=== PATIENT | male | born 1950 | race Caucasian/White ===

== ENCOUNTER 2017-05-29 17:42 | Inpatient (IN) | payer MEDICARE, OTHER ==
[~2017-05-29] VITALS: Ht 180.3 cm; Wt 94.0 kg
--- NOTE | 2017-05-29 18:27 | PD ---
Physical Exam Time Seen by Provider: 18:21 Narrative 67 year old male with history of Bilat Lung transplant SIX years ago, on immunosuppressive therapy, CKD, HTN, presents to the ED for evaluation of nausea , vomiting, and diarrhea. Pt states he first started with this last week. It resolved on its own, however, today it began again around noon. Denies any hematochezia or hematemesis. 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 Upon [facility] arrival, pt was hypotensive and after 1.5 LITER NS bolus, patient SBP was 90. Pt denies fever, but has been chilled. States he feels like his electrolytes are off. He has no other symptoms to report at this time GENERAL: Well nourished male patient, in no acute distress SKIN: Warm and dry. Well approximated sutured incision site on superior scalp; no erythema or edema. No drainage. R facial dressing intact. HEAD: Normocephalic. EYES: Pupils equal and round. No scleral icterus. No injection or drainage. ENT: No nasal bleeding or discharge. Mucous membranes pink and moist. NECK: Trachea midline. No JVD. CARDIOVASCULAR: Regular rate and rhythm. RESPIRATORY: No accessory muscle use. Clear to auscultation. Breath sounds equal bilaterally. GASTROINTESTINAL: Abdomen soft, non-distended; mild epigastric tenderness to deep palpation. Hepatic and splenic margins not palpable. MUSCULOSKELETAL: Extremities without clubbing, cyanosis, or edema. No obvious deformities. NEUROLOGICAL: Awake and alert. No obvious cranial nerve deficits. Motor grossly within normal limits. Five out of 5 muscle strength in the arms and legs. Normal speech. PSYCHIATRIC: Appropriate mood and affect; insight and judgment normal. Data Data Last Documented VS Vital Signs Date Time Temp Pulse Resp B/P (MAP) Pulse Ox O2 Delivery O2 Flow Rate FiO2 05/29/17 19:12 Room Air 05/29/17 18:41 97.3 104 18 131/62 (85) Orders Orders Electrocardiogram (05/29/17 18:16) Complete Blood Count With Diff (05/29/17 18:16) Comprehensive Metabolic Panel (05/29/17 18:16) Prothrombin Time / Inr (Pt) (05/29/17 18:16) Act Partial Throm Time (Ptt) (05/29/17 18:16) Lactic Acid Sepsis Protocol (05/29/17 18:16) Magnesium (Mg) (05/29/17 18:16) Ckmb (Isoenzyme) Profile (05/29/17 18:16) Troponin I (05/29/17 18:16) Urinalysis - C+S If Indicated (05/29/17 18:16) Blood Culture (05/29/17 18:16) Chest, Single Ap (05/29/17 18:16) Blood Glucose (05/29/17 18:16) Ecg Monitoring (05/29/17 18:16) Iv Access Insert/Monitor (05/29/17 18:16) Oximetry (05/29/17 18:16) Oxygen Administration (05/29/17 18:16) Ondansetron Inj (Zofran Inj) (05/29/17 18:30) C Diff Toxin Pcr (05/29/17 18:56) MDM Medical Record Reviewed: Yes Supervised Visit with ERNA: No Differential Diagnosis gastroenteritis versus electrolyte abnormality versus sepsis versus pancreatitis versus cholecystitis Narrative Course 67 year old male presents to the ED for evalution of n/v/d. Pt feels weak. He is mildly tachycardic; afebrile but with a lower normothermic temp. He continues to vomit here in the amb. ocampo; zofran is ordered. Pt has received 1.5 LNS bolus from evac. Lab work is initiated in triage ambulance hallway. Once a medical bed is available, pt will be transferred and care assumed by that provider. Condition: Stable Jessica Ladd May 29, 2017 18:27
[2017-05-29] MEDS ORDERED: ONDANSETRON HCL 4 MG/2 ML VIAL IV PUSH ONE (18:30)
[2017-05-29 18:41] VITALS: BP 131/62; PULSE 104; RESP 18; TEMP 97.3
[2017-05-29] MEDS ORDERED: METO25TA3 PO (19:19)
[2017-05-29] MEDS ORDERED: LISI2.5T3 PO (19:19)
[2017-05-29] MEDS ORDERED: PRED1 PO (19:19)
[2017-05-29] MEDS ORDERED: [UNRECOGNIZED DRUG - CODE] PO (19:19)
[2017-05-29] MEDS ORDERED: CYCL25CA4 PO (19:19)
[2017-05-29] MEDS ORDERED: SODIUM CHLOR 0.9% 1000 ML INJ 1,000 ML IV SCH ×2 (19:22→21:24)
[2017-05-29] MEDS ORDERED: PANTOPRAZOLE SODIUM 40 MG VIAL IVP ONE (19:30)
[2017-05-29] MEDS ORDERED: METOCLOPRAMIDE HCL 10 MG/2 ML VIAL IV PUSH ONE (19:30)
[2017-05-29] MEDS ORDERED: FAMOTIDINE 20 MG/2 ML VIAL IV PUSH ONE (19:30)
--- NOTE | 2017-05-29 19:38 | PD ---
Physical Exam Narrative General: The patient is well-developed well-nourished male in no acute distress. Head and Neck exam: Head is normocephalic, bandages noted along the right side of the face. The patient reports that he had a skin cancer removed earlier today at a dermatology clinic. Eyes: EOMI, pupils are equal round and reactive to light. Nose: Midline septum with pink mucous membranes Mouth: Dentition unremarkable. Moist mucus membranes. Posterior oropharynx is not erythematous. No tonsillar hypertrophy. Uvula midline. Airway patent. Neck: No palpable lymphadenopathy. No nuchal rigidity. No thyromegaly. Cardiovascular: Sinus tachycardia in the low 100s without murmurs, gallops, or rubs. No pulse deficit to the extremities and simultaneous auscultation and palpation of his radial artery. Lungs: Clear to auscultation bilaterally. No wheezes, rhonchi, or rales. Abdomen: Soft, without tenderness to palpation in all 4 quadrants of the abdomen. No guarding, rebound, or rigidity. Normal bowel sounds are audible. No tenderness on palpation of McBurney's point. Negative Li sign. Extremities: No clubbing, cyanosis, or edema. 2+ pulses in all 4 extremities. No calf tenderness on palpation. Back: No spinous process tenderness to palpation. No costovertebral angle tenderness to palpation. Neurologic Exam: Grossly nonfocal. Skin Exam: No rash noted. Intact skin that is warm and dry. Data Data Last Documented VS Vital Signs Date Time Temp Pulse Resp B/P (MAP) Pulse Ox O2 Delivery O2 Flow Rate FiO2 05/29/17 19:57 100 90/56 (67) 97 Room Air 05/29/17 18:41 97.3 18 Orders Orders Electrocardiogram (05/29/17 18:16) Complete Blood Count With Diff (05/29/17 18:16) Comprehensive Metabolic Panel (05/29/17 18:16) Prothrombin Time / Inr (Pt) (05/29/17 18:16) Act Partial Throm Time (Ptt) (05/29/17 18:16) Lactic Acid Sepsis Protocol (05/29/17 18:16) Magnesium (Mg) (05/29/17 18:16) Ckmb (Isoenzyme) Profile (05/29/17 18:16) Troponin I (05/29/17 18:16) Urinalysis - C+S If Indicated (05/29/17 18:16) Blood Culture (05/29/17 18:16) Chest, Single Ap (05/29/17 18:16) Blood Glucose (05/29/17 18:16) Ecg Monitoring (05/29/17 18:16) Iv Access Insert/Monitor (05/29/17 18:16) Oximetry (05/29/17 18:16) Oxygen Administration (05/29/17 18:16) Ondansetron Inj (Zofran Inj) (05/29/17 18:30) C Diff Toxin Pcr (05/29/17 18:56) Pantoprazole Inj (Protonix Inj) (05/29/17 19:30) Sodium Chlor 0.9% 1000 Ml Inj (Ns 1000 M (05/29/17 19:22) Famotidine Inj (Pepcid Inj) (05/29/17 19:30) Metoclopramide Inj (Reglan Inj) (05/29/17 19:30) Lipase (05/29/17 20:24) Sodium Chlor 0.9% 1000 Ml Inj (Ns 1000 M (05/29/17 21:24) Metronidazole 500 Mg Inj (Flagyl 500 Mg (05/29/17 22:00) Place In Observation (05/29/17 ) Vital Signs (Adult) Q4H (05/29/17 22:09) Activity Oob With Assistance (05/29/17 22:09) Channel Man / Telemetry .CONTINUOUS (05/29/17 22:09) Diet Heart Healthy (05/30/17 Breakfast) Sodium Chloride 0.9% Flush (Ns Flush) (05/29/17 22:15) Sodium Chloride 0.9% Flush (Ns Flush) (05/30/17 09:00) Basic Metabolic Panel (Bmp) (05/30/17 06:00) Complete Blood Count With Diff (05/30/17 06:00) Naloxone Inj (Narcan Inj) (05/29/17 22:15) Admit Order (Ed Use Only) (05/29/17 22:11) Labs Laboratory Tests Test 05/29/17 19:21 05/29/17 20:40 05/29/17 21:08 Prothrombin Time 10.6 SEC Prothromb Time International Ratio 1.0 RATIO Activated Partial Thromboplast Time 21.9 SEC Blood Urea Nitrogen 47 MG/DL Creatinine 3.22 MG/DL Random Glucose 124 MG/DL Total Protein 6.5 GM/DL Albumin 3.2 GM/DL Calcium Level 8.6 MG/DL Magnesium Level 1.6 MG/DL Alkaline Phosphatase 44 U/L Aspartate Amino Transf (AST/SGOT) 13 U/L Alanine Aminotransferase (ALT/SGPT) 22 U/L Total Bilirubin 0.7 MG/DL Sodium Level 141 MEQ/L Potassium Level 5.4 MEQ/L Chloride Level 111 MEQ/L Carbon Dioxide Level 19.9 MEQ/L Anion Gap 10 MEQ/L Estimat Glomerular Filtration Rate 19 ML/MIN Total Creatine Kinase 59 U/L Troponin I LESS THAN 0.02 NG/ML White Blood Count 15.9 TH/MM3 Red Blood Count 4.94 MIL/MM3 Hemoglobin 14.5 GM/DL Hematocrit 44.5 % Mean Corpuscular Volume 90.1 FL Mean Corpuscular Hemoglobin 29.3 PG Mean Corpuscular Hemoglobin Concent 32.5 % Red Cell Distribution Width 13.9 % Platelet Count 122 TH/MM3 Mean Platelet Volume 8.0 FL Neutrophils (%) (Auto) 90.6 % Lymphocytes (%) (Auto) 2.6 % Monocytes (%) (Auto) 6.2 % Eosinophils (%) (Auto) 0.1 % Basophils (%) (Auto) 0.5 % Neutrophils # (Auto) 14.4 TH/MM3 Lymphocytes # (Auto) 0.4 TH/MM3 Monocytes # (Auto) 1.0 TH/MM3 Eosinophils # (Auto) 0.0 TH/MM3 Basophils # (Auto) 0.1 TH/MM3 CBC Comment AUTO DIFF Differential Total Cells Counted 100 Neutrophils % (Manual) 82 % Band Neutrophils % 11 % Lymphocytes % 3 % Monocytes % 3 % Neutrophils # (Manual) 14.9 TH/MM3 Metamyelocytes 1 % Differential Comment FINAL DIFF MANUAL Platelet Estimate LOW Platelet Morphology Comment NORMAL Ovalocytes 1+ Acanthocytes OCC Lactic Acid Level 1.2 mmol/L Lipase 183 U/L Stool C. difficile Toxin (PCR) NEGATIVE Stl C. difficile Toxin Epiderm 027 PRESUMPTIVE NEGATIVE MDM Medical Record Reviewed: Yes Supervised Visit with ERNA: Yes Narrative Course I, Dr. Pineda, have reviewed the advance practice practitioner's documentation and am in agreement, met with the patient face to face, made the diagnosis, and the medical decision making was done by me. The patient was initially evaluated by Jessica and Martir. Please see their initial dictations. *My assessment and Findings: The patient is a 67-year-old male who presents to [facility] emergency Department with a history of nausea vomiting and diarrhea that first began a week ago. The patient's medical history is complicated by being on immunosuppressive therapy related to bilateral lung transplant 6 years ago. The patient also has a history of hypertension, chronic renal insufficiency. The patient reports that his last creatinine was in the twos. He reports that today the nausea and vomiting began again after seem to be improving. He reports that he's had diarrhea 5, nausea vomiting 7. The patient prior to arrival back into the emergency department that has received 1.5 L of normal saline and 2 doses of Zofran. He reports that his nausea has improved. The patient is followed by Z[facility] for his primary care, given his history of lung transplant. He reports of the lung transplant was done related to a history of sarcoidosis and pulmonary fibrosis. During the course of the patients emergency department visit, the patients history, examination, and differential diagnosis were reviewed with the patient. The patient had IV access obtained and blood work sent for analysis. The patient was placed on a monitor tech with oximetry and blood pressure monitoring. An ECG was done on arrival. Patient's EKG reveals a sinus tachycardia rate of 101, QRS duration is 80 ms, QTC is 382 ms. The patient is noted to have nonspecific ST depression in V2, V3, V4, T waves are inverted in V1. The patient was initially provided normal saline 1 L IV fluid bolus, Reglan 10 mg IV, famotidine 20 mg IV. The patients laboratory studies were reviewed and remarkable for a white count of 15.9, hemoglobin 14.5, platelets 122 with 82 neutrophils, 11 bands, 3 lymphocytes area and a lactic acid and blood culture were sent. CMP is remarkable for a potassium of 5.4, chloride 111, CO2 19.9, BUN 47, creatinine 3.22 suspicious for acute on chronic renal insufficiency related to dehydration , glucose 124, AST 13, alkaline phosphatase 44, CPK 59, troponin I less than 0.02, lipase 183, lactic acid 1.2. PT 10.6, PTT 21.9. A C. difficile toxin has been sent for analysis. Radiology studies were reviewed and remarkable for a chest x-ray that shows elevation of the right hemidiaphragm was suspected chronic pleural changes along the right lateral chest. The lungs themselves appear grossly clear. Calcified lymph nodes in the mediastinum are noted. The patients results were discussed with the patient, including the plan of care. I explained that further testing and/ or monitoring is indicated based on the patients history, examination, and/ or laboratory findings. Therefore, I recommended admission for additional evaluation. The patient expressed understanding and was agreeable with this plan. The patient was admitted to the hospital in guarded condition and [facility] Diagnosis Primary Impression: Intractable nausea and vomiting Qualified Codes: R11.2 - Nausea with vomiting, unspecified Additional Impression: Acute kidney injury superimposed on chronic kidney disease Admitting Information Admitting Physician Requests: Admit Condition: Stable Imelda Pineda MD May 29, 2017 19:38
--- NOTE | 2017-05-29 19:51 | RADRPT ---
EXAM DATE/TIME: 05/29/2017 18:29 [place] COMPARISON: No previous studies available for comparison. INDICATIONS : Nausea MEDICAL HISTORY : None. SURGICAL HISTORY : Bilateral lung transplant ENCOUNTER: Initial ACUITY: 1 day PAIN SCORE: 0/10 LOCATION: Chest FINDINGS: The heart size is normal. There do appear to be possible clips over the lower medial l eft chest. Calcified lymph nodes are seen in the mediastinum. The lungs are grossly clear. There is elevation of the right hemidiaphragm. There is some pleural change along the right lateral chest. Old healed left-sided rib fractures are seen. Prior exams are unavailable for comparison. There does appear to be some calcific density seen inferior to the coronoid process on the left which may repre sent a loose body at the left glenohumeral joint. CONCLUSION: 1. Elevation of the right hemidiaphragm with suspected chronic pleural change along the right lateral chest. Prior exams are unavailable. 2. The lungs themselves appear grossly clear. 3. Calcified lymph nodes in the mediastinum. Bi Wells MD on May 29, 2017 at 19:14 Board Certified Radiologist. This report was verified electronically.
[2017-05-29 19:52] LABS: APTT (PATIENT) 21.9 SEC (24.3-30.1); PROTHROMBIN TIME - PATIENT 10.6 SEC (9.8-11.6)
[2017-05-29 19:57] VITALS: BP 90/56; PULSE 100; O2SAT 97
--- NOTE | 2017-05-29 20:12 | PD ---
HPI Chief Complaint: GI Complaint Time Seen by Provider: 19:14 Travel History International Travel<30 days: No Contact w/Intl Traveler<30days: No Traveled to known affect area: No History of Present Illness HPI 67-year-old male to presents to the ED via ambulance for evaluation of nausea and vomiting and diarrhea. Per patient he developed this today. Patient has a completely history including chronic kidney disease, lung transplant with immunosuppressants and multiple skin cancers removed. Per patient today he developed an episode of nausea and vomiting. Diarrhea noted as well. [place] [facility] [place] and he developed the nausea and vomiting. She was given Zofran at the facility and then brought here for evaluation. Per patient he feels like his lactulose her low. He denies any chest pain versus having some abdominal discomfort. Per patient the discomfort is not severe. He states that he had the transplant done at [facility] and he is currently on immunosuppressants for it. Patient has a history of fibrosis to his lungs which is what caused transplant. Patient has no allergies to medication. Per patient his discomfort is 4 out of 10 but he is actively vomiting during my examination so history is somewhat limited. [facility] Past Medical History Tetanus Vaccination: > 5 Years Influenza Vaccination: Yes Past Surgical History Other Surgery: Yes (JOEY LUNG TRANSPLANT AT [facility]) Social History Alcohol Use: No Tobacco Use: No Substance Use: No Allergies-Medications (Allergen,Severity, Reaction): Coded Allergies: No Known Allergies (Unverified , 05/29/17) Reported Meds & Prescriptions Reported Meds & Active Scripts Active Reported Metoprolol Tartrate 25 Mg Tab Mg PO BID Lisinopril 2.5 Mg Tab Mg PO DAILY Prednisone 1 Mg Tab 0.5 Mg PO DAILY Rapamune (Sirolimus) 0.5 Mg Tab 0.5 Mg PO DAILY Cyclosporine 25 Mg Cap 50 Mg PO BID Review of Systems Except as stated in HPI: all other systems reviewed are Neg Physical Exam Narrative GENERAL: SKIN: Warm and dry. HEAD: Atraumatic. Normocephalic. EYES: Pupils equal and round. No scleral icterus. No injection or drainage. ENT: No nasal bleeding or discharge. Mucous membranes pink and moist. Tongue is midline. No uvula deviation. NECK: Trachea midline. No JVD. CARDIOVASCULAR: Regular rate and rhythm. No murmurs, S3, S4. RESPIRATORY: No accessory muscle use. Clear to auscultation. Breath sounds equal bilaterally. GASTROINTESTINAL: Abdomen soft, diffusely tender, nondistended. Hepatic and splenic margins not palpable. MUSCULOSKELETAL: Extremities without clubbing, cyanosis, or edema. No obvious deformities. Full range of motion of the upper and lower extremities bilaterally. 2+ pulses bilaterally. NEUROLOGICAL: Awake and alert. No obvious cranial nerve deficits. Motor grossly within normal limits. Five out of 5 muscle strength in the arms and legs. Normal speech. PSYCHIATRIC: Appropriate mood and affect; insight and judgment normal. Data Data Last Documented VS Vital Signs Date Time Temp Pulse Resp B/P (MAP) Pulse Ox O2 Delivery O2 Flow Rate FiO2 05/29/17 19:57 100 90/56 (67) 97 Room Air 05/29/17 18:41 97.3 18 Orders Orders Electrocardiogram (05/29/17 18:16) Complete Blood Count With Diff (05/29/17 18:16) Comprehensive Metabolic Panel (05/29/17 18:16) Prothrombin Time / Inr (Pt) (05/29/17 18:16) Act Partial Throm Time (Ptt) (05/29/17 18:16) Lactic Acid Sepsis Protocol (05/29/17 18:16) Magnesium (Mg) (05/29/17 18:16) Ckmb (Isoenzyme) Profile (05/29/17 18:16) Troponin I (05/29/17 18:16) Urinalysis - C+S If Indicated (05/29/17 18:16) Blood Culture (05/29/17 18:16) Chest, Single Ap (05/29/17 18:16) Blood Glucose (05/29/17 18:16) Ecg Monitoring (05/29/17 18:16) Iv Access Insert/Monitor (05/29/17 18:16) Oximetry (05/29/17 18:16) Oxygen Administration (05/29/17 18:16) Ondansetron Inj (Zofran Inj) (05/29/17 18:30) C Diff Toxin Pcr (05/29/17 18:56) Pantoprazole Inj (Protonix Inj) (05/29/17 19:30) Sodium Chlor 0.9% 1000 Ml Inj (Ns 1000 M (05/29/17 19:22) Famotidine Inj (Pepcid Inj) (05/29/17 19:30) Metoclopramide Inj (Reglan Inj) (05/29/17 19:30) Lipase (05/29/17 20:24) Sodium Chlor 0.9% 1000 Ml Inj (Ns 1000 M (05/29/17 21:24) Metronidazole 500 Mg Inj (Flagyl 500 Mg (05/29/17 22:00) Place In Observation (05/29/17 ) Vital Signs (Adult) Q4H (05/29/17 22:09) Activity Oob With Assistance (05/29/17 22:09) Managed Services Consultant / Telemetry .CONTINUOUS (05/29/17 22:09) Diet Heart Healthy (05/30/17 Breakfast) Sodium Chloride 0.9% Flush (Ns Flush) (05/29/17 22:15) Sodium Chloride 0.9% Flush (Ns Flush) (05/30/17 09:00) Basic Metabolic Panel (Bmp) (05/30/17 06:00) Complete Blood Count With Diff (05/30/17 06:00) Naloxone Inj (Narcan Inj) (05/29/17 22:15) Admit Order (Ed Use Only) (05/29/17 22:11) Labs Laboratory Tests Test 05/29/17 19:21 05/29/17 20:40 05/29/17 21:08 Prothrombin Time 10.6 SEC Prothromb Time International Ratio 1.0 RATIO Activated Partial Thromboplast Time 21.9 SEC Blood Urea Nitrogen 47 MG/DL Creatinine 3.22 MG/DL Random Glucose 124 MG/DL Total Protein 6.5 GM/DL Albumin 3.2 GM/DL Calcium Level 8.6 MG/DL Magnesium Level 1.6 MG/DL Alkaline Phosphatase 44 U/L Aspartate Amino Transf (AST/SGOT) 13 U/L Alanine Aminotransferase (ALT/SGPT) 22 U/L Total Bilirubin 0.7 MG/DL Sodium Level 141 MEQ/L Potassium Level 5.4 MEQ/L Chloride Level 111 MEQ/L Carbon Dioxide Level 19.9 MEQ/L Anion Gap 10 MEQ/L Estimat Glomerular Filtration Rate 19 ML/MIN Total Creatine Kinase 59 U/L Troponin I LESS THAN 0.02 NG/ML White Blood Count 15.9 TH/MM3 Red Blood Count 4.94 MIL/MM3 Hemoglobin 14.5 GM/DL Hematocrit 44.5 % Mean Corpuscular Volume 90.1 FL Mean Corpuscular Hemoglobin 29.3 PG Mean Corpuscular Hemoglobin Concent 32.5 % Red Cell Distribution Width 13.9 % Platelet Count 122 TH/MM3 Mean Platelet Volume 8.0 FL Neutrophils (%) (Auto) 90.6 % Lymphocytes (%) (Auto) 2.6 % Monocytes (%) (Auto) 6.2 % Eosinophils (%) (Auto) 0.1 % Basophils (%) (Auto) 0.5 % Neutrophils # (Auto) 14.4 TH/MM3 Lymphocytes # (Auto) 0.4 TH/MM3 Monocytes # (Auto) 1.0 TH/MM3 Eosinophils # (Auto) 0.0 TH/MM3 Basophils # (Auto) 0.1 TH/MM3 CBC Comment AUTO DIFF Lactic Acid Level 1.2 mmol/L Lipase 183 U/L [facility] Medical Decision Making Medical Screen Exam Complete: Yes Emergency Medical Condition: Yes Medical Record Reviewed: Yes Interpretation(s) CBC & BMP Diagram 05/29/17 19:21 Total Protein 6.5, Albumin 3.2 L, Calcium Level 8.6, Magnesium Level 1.6, Alkaline Phosphatase 44 L, Aspartate Amino Transf (AST/SGOT) 13 L, Alanine Aminotransferase (ALT/SGPT) 22, Total Bilirubin 0.7 05/29/17 20:40 CXR negative for acute disease Differential Diagnosis Nausea and vomiting versus diarrhea versus gastroenteritis versus obstruction versus pancreatitis versus sepsis Narrative Course 67-year-old male that presents to the ED for evaluation of nausea and vomiting. Patient was properly examined and was found to have signs and symptoms consistent appears to be much vomiting and diarrhea. Labs and imaging were ordered initially by Jessica QUIROGA. During my evaluation patient was actively vomiting so Reglan was ordered. Case was discussed in my attending Dr. Pineda who evaluated the patient with me and agrees with plan. Labs and imaging came back showing leukocytosis as well as appears to be possible acute on chronic kidney disease. Patient does tell us that his creatinine usually runs in the tissues and today's is on the trees. Possibly from the hydration. Recommendation was for admission for further workup as well as symptomatic relief. Patient is in agreement with this plan. Case discussed with Dr. Pineda who agrees with this plan. Patient was started on Flagyl prophylactically for infection prophylactic. Case discussed with Dr. Dailey who agrees to admission. Procedures EKG Prior to Arrival: No Diagnosis Primary Impression: Intractable nausea and vomiting Qualified Codes: R11.2 - Nausea with vomiting, unspecified Additional Impressions: Acute kidney injury superimposed on chronic kidney disease Leukocytosis Qualified Codes: D72.825 - Bandemia Admitting Information Admitting Physician Requests: Observation Condition: Stable Martir Perry May 29, 2017 20:12
[2017-05-29 20:19] LABS: ALKALINE PHOSPHATASE 44 U/L (45-117); ALT (GPT) 22 U/L (12-78); ANION GAP 10 MEQ/L (5-15); AST (GOT) 13 U/L (15-37); BICARBONATE 19.9 MEQ/L (21.0-32.0); BLOOD UREA NITROGEN 47 MG/DL (7-18); CHLORIDE 111 MEQ/L (98-107); GLOMERULAR FILTRATION RATE 19 ML/MIN (>89); MAGNESIUM 1.6 MG/DL (1.5-2.5); POTASSIUM 5.4 MEQ/L (3.5-5.1); SODIUM (NA) 141 MEQ/L (136-145); TOTAL BILIRUBIN ADULT 0.7 MG/DL (0.2-1.0)
[2017-05-29 20:21] LABS: CREATINE KINASE 59 U/L (39-308)
[2017-05-29 21:35] LABS: AUTOMATED NEUTROPHIL # 14.4 TH/MM3 (1.8-7.7); BASOPHIL # 0.1 TH/MM3 (0-0.2); BASOPHIL % 0.5 % (0.0-2.0); EOSINOPHIL % 0.1 % (0.0-4.0); HEMATOCRIT 44.5 % (39.0-51.0); LYMPH % 2.6 % (9.0-44.0); LYMPHOCYTE # 0.4 TH/MM3 (1.0-4.8); MEAN CELL VOLUME 90.1 FL (80.0-100.0); MEAN CORPUSCULAR HEMOGLOBIN 29.3 PG (27.0-34.0); MEAN CORPUSCULAR HGB CONC 32.5 % (32.0-36.0); MONO % 6.2 % (0.0-8.0); NEUT % 90.6 % (16.0-70.0); PLATELET COUNT 122 TH/MM3 (150-450); RED BLOOD COUNT 4.94 MIL/MM3 (4.50-5.90); RED CELL DISTRIBUTION WIDTH 13.9 % (11.6-17.2); WHITE BLOOD COUNT 15.9 TH/MM3 (4.0-11.0)
[2017-05-29 21:45] LABS: HEMO FLAGS AUTO DIFF
[2017-05-29] MEDS ORDERED: metroNIDAZOLE 500 MG INJ 100 ML IV ONE (22:00)
[2017-05-29] MEDS ORDERED: SODIUM CHLORIDE 0.9% FLUSH 10 ML FLUSH IV FLUSH PRN (22:15)
[2017-05-29] MEDS ORDERED: NALOXONE HCL 0.4 MG/ML AMP IV PRN (22:15)
[2017-05-29 22:22] LABS: BANDS 11 % (0-6); METAMYELOCYTES 1 % (0-1); NEUTROPHIL # MANUAL DIFF 14.9 TH/MM3 (1.8-7.7); POLYS (SEG NEUTROPHILS) 82 % (16-70); WBC DIFF SAMPLE 100
[2017-05-29 22:24] LABS: ACANTHOCYTES OCC (NORMAL); OVALOCYTES 1+ (NORMAL); PLATELET ESTIMATE SMEAR LOW (NORMAL); PLATELET MORPHOLOGY NORMAL (NORMAL); SCAN/DIFF FINAL DIFF MANUAL
[2017-05-29 23:14] LABS: C. DIFF EPI 027 PRESUMPTIVE NEGATIVE (NEGATIVE)
[2017-05-30] VITALS (13 sets, daily range): BP systolic 81–137; BP diastolic 52–72; PULSE 86–108; RESP 16–20; TEMP 96.9–98.6; O2SAT 96–100
--- NOTE | 2017-05-30 02:13 | HHI.HP ---
[facility] No Primary Care Physician Admission Diagnosis intractable nausea and vomit, leukocytosis, immunosupressants Diagnoses: Chief Complaint: nausea, vomiting and diarrhea Travel History International Travel<30 Days: No Contact w/Intl Traveler <30 Da: No Traveled to Known Affected Are: No History of Present Illness Written by KIMBER Dumas acting as scribe for [Ashlie] on 05/30/17 at 02: 02. 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 He states he was at the ammonia box operator today removing a skin cancer from his right side of his face and he became nauseous. He states one week ago he had vomiting for 1 day a week ago, and then again today. He states it is brown tinged and he has associated severe diarrhea 10x times today x 1 day and very little urination. He denies any fever, chills, dizziness, black or bloody stools. He was recently started on lisinopril from his home care physical therapist about a month ago. He is also on Bactrim on Monday, Monday, Saturdays. He states he is awaiting a kidney transplant, and states his kidney disease is from taking cyclosporin. He reports he was taking cyclosporin for antirejection due to his lung transplant which she received 6 years ago. Cardiac cath one month ago, and no intervention needed. Cardiac catheter was done a month ago because of abnormal stress test and also as evaluation for renal transplant candidacy. Further information was obtained from lung transplant retail team member Benito London at [facility] at [phone] by Ashlie. Patient's baseline creatinine there is 2.8-3. Review of Systems Except as stated in HPI: all other systems reviewed are Neg Past Family Social History Past Medical History HTN CKD stage 4 Sarcoidosis Afib prior to transplant Past Surgical History lung transplant with immunosuppressants Multiple skin cancer removal Reported Medications Patient's medications list OBTAINED from the clinical training coordinator Benito London at [facility] lung transplant team. Phone number [phone]. Acyclovir 400 mg by mouth twice a day Calcitriol 0.25 g every other day. Norco7.5 mg/325 one tablet by mouth every 6 hours when necessary for pain. Lisinopril 5 mg by mouth daily. Metoprolol 50 mg by mouth twice a day. Niacinamide 500 g by mouth twice a day Zofran when necessary for nausea Proton X 40 mg by mouth twice a day Pravastatin 20 mg by mouth twice a day Bactrim single strength by mouth daily on Monday, Monday, Monday Allergies: Coded Allergies: No Known Allergies (Unverified , 05/29/17) Active Ordered Medications Current Medications Medications (Trade) Dose Ordered Sig/Adrianne Route Start Time Stop Time Status Last Admin (NS Flush) 2 ml UNSCH PRN IV FLUSH 05/29/17 22:15 (NS Flush) 2 ml BID IV FLUSH 05/30/17 09:00 (Narcan Inj) 0.4 mg UNSCH PRN IV 05/29/17 22:15 (Zofran Inj) 4 mg Q6H PRN IV PUSH 05/30/17 02:00 Family History Family history of Colon cancer Social History Tobacco use: Denies Alcohol use: Denies Illicit drug use: Denies Physical Exam Vital Signs Vital Signs Date Time Temp Pulse Resp B/P (MAP) Pulse Ox O2 Delivery O2 Flow Rate FiO2 05/29/17 19:57 100 90/56 (67) 97 Room Air 05/29/17 19:12 Room Air 05/29/17 19:12 Room Air 05/29/17 18:41 97.3 104 18 131/62 (85) Physical Exam GENERAL: This is a well-nourished, well-developed patient, who is very nauseous and uncomfortable. SKIN: No rashes, ecchymoses or lesions. Cool and dry. HEAD: Atraumatic. Normocephalic. EYES: Pupils equal round and reactive. ENT: Nose without bleeding, purulent drainage or septal hematoma. Airway patent. NECK: Trachea midline. No JVD CARDIOVASCULAR: Regular rate and rhythm without murmurs, gallops, or rubs. RESPIRATORY: Clear to auscultation. Breath sounds equal bilaterally. No wheezes , rales, or rhonchi. GASTROINTESTINAL: Abdomen soft, non-tender, nondistended. MUSCULOSKELETAL: Extremities without clubbing, cyanosis, or edema. No calf tenderness. NEUROLOGICAL: Awake and alert. Motor and sensory grossly within normal limits. Normal speech. Laboratory Laboratory Tests Test 05/29/17 19:21 05/29/17 20:40 05/29/17 21:08 Prothrombin Time 10.6 Prothromb Time International Ratio 1.0 Activated Partial Thromboplast Time 21.9 Blood Urea Nitrogen 47 Creatinine 3.22 Random Glucose 124 Total Protein 6.5 Albumin 3.2 Calcium Level 8.6 Magnesium Level 1.6 Alkaline Phosphatase 44 Aspartate Amino Transf (AST/SGOT) 13 Alanine Aminotransferase (ALT/SGPT) 22 Total Bilirubin 0.7 Sodium Level 141 Potassium Level 5.4 Chloride Level 111 Carbon Dioxide Level 19.9 Anion Gap 10 Estimat Glomerular Filtration Rate 19 Total Creatine Kinase 59 Troponin I LESS THAN 0.02 White Blood Count 15.9 Red Blood Count 4.94 Hemoglobin 14.5 Hematocrit 44.5 Mean Corpuscular Volume 90.1 Mean Corpuscular Hemoglobin 29.3 Mean Corpuscular Hemoglobin Concent 32.5 Red Cell Distribution Width 13.9 Platelet Count 122 Mean Platelet Volume 8.0 Neutrophils (%) (Auto) 90.6 Lymphocytes (%) (Auto) 2.6 Monocytes (%) (Auto) 6.2 Eosinophils (%) (Auto) 0.1 Basophils (%) (Auto) 0.5 Neutrophils # (Auto) 14.4 Lymphocytes # (Auto) 0.4 Monocytes # (Auto) 1.0 Eosinophils # (Auto) 0.0 Basophils # (Auto) 0.1 CBC Comment AUTO DIFF Differential Total Cells Counted 100 Neutrophils % (Manual) 82 Band Neutrophils % 11 Lymphocytes % 3 Monocytes % 3 Neutrophils # (Manual) 14.9 Metamyelocytes 1 Differential Comment FINAL DIFF MANUAL Platelet Estimate LOW Platelet Morphology Comment NORMAL Ovalocytes 1+ Acanthocytes OCC Lactic Acid Level 1.2 Lipase 183 Stool C. difficile Toxin (PCR) NEGATIVE Stl C. difficile Toxin Epiderm 027 PRESUMPTIVE NEGATIVE Date/Time Source Procedure Growth Status 05/29/17 19:55 Blood Peripheral Aerobic Blood Culture Pending Received 05/29/17 19:55 Blood Peripheral Anaerobic Blood Culture Pending Received Result Diagram: 05/29/17203905/29/17 192 Imaging Last Impressions Chest X-Ray 05/29/17 1816 Signed Impressions: Service Date/Time: Monday, May 29, 2017 18:29 - CONCLUSION: 1. Elevation of the right hemidiaphragm with suspected chronic pleural change along the right lateral chest. Prior exams are unavailable. 2. The lungs themselves appear grossly clear. 3. Calcified lymph nodes in the mediastinum. MD Frankie Moreno VTE Risk Assessment Caprini VTE Risk Assessment: Mod/High Risk (score >= 2) Caprini Risk Assessment Model Point Value = 1 Point Value = 2 Point Value = 3 Point Value = 5 Age 41-60 Minor surgery BMI > 25 kg/m2 Swollen legs Varicose veins or History of unexplained or recurrent spontaneous Oral contraceptives or hormone replacement Sepsis (< 1 month) Serious lung disease, including pneumonia (< 1 month) Abnormal pulmonary function Acute myocardial infarction Congestive heart failure (< 1 month) History of inflammatory bowel disease Medical patient at bed rest Age 61-74 Arthroscopic surgery Major open surgery (> 45 min) Laparoscopic surgery (> 45 min) Malignancy Confined to bed (> 72 hours) Immobilizing plaster cast Central venous access Age >= 75 History of VTE Family history of VTE Factor V Leiden Prothrombin [id number] Lupus anticoagulant Anticardiolipin antibodies Elevated serum homocysteine Heparin-induced thrombocytopenia Other congenital or acquired thrombophilia Stroke (< 1 month) Elective arthroplasty Hip, pelvis, or leg fracture Acute spinal cord injury (< 1 month) Prophylaxis Regimen Total Risk Factor Score Risk Level Prophylaxis Regimen 0-1 Low Early ambulation 2 Moderate Order ONE of the following: *Sequential Compression Device (SCD) *Heparin 5000 units SQ BID 3-4 Higher Order ONE of the following medications: *Heparin 5000 units SQ TID *Enoxaparin/Lovenox 40 mg SQ daily (WT < 150 kg, CrCl > 30 mL/min) *Enoxaparin/Lovenox 30 mg SQ daily (WT < 150 kg, CrCl > 10-29 mL/min) *Enoxaparin/Lovenox 30 mg SQ BID (WT < 150 kg, CrCl > 30 mL/min) AND/OR *Sequential Compression Device (SCD) 5 or more Highest Order ONE of the following medications: *Heparin 5000 units SQ TID (Preferred with Epidurals) *Enoxaparin/Lovenox 40 mg SQ daily (WT < 150 kg, CrCl > 30 mL/min) *Enoxaparin/Lovenox 30 mg SQ daily (WT < 150 kg, CrCl > 10-29 mL/min) *Enoxaparin/Lovenox 30 mg SQ BID (WT < 150 kg, CrCl > 30 mL/min) AND *Sequential Compression Device (SCD) Assessment and Plan Problem List: (1) Acute kidney injury superimposed on chronic kidney disease ICD Code: N17.9 - Acute kidney failure, unspecified; N18.9 - Chronic kidney disease, unspecified Status: Acute (2) Intractable nausea and vomiting ICD Code: R11.2 - Nausea with vomiting, unspecified Status: Acute (3) Leukocytosis ICD Code: D72.829 - Elevated white blood cell count, unspecified Status: Acute Assessment and Plan 67 y/o male with a 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 Acute Kidney injury, superimposed on CKD, creatine 3.2, baseline around 2.8-3, likely dehydration from nausea, vomiting and diarrhea -IVF for hydration -BMP in AM -Antiemetics as needed -Avoid nephrotoxins as much as possible. Hold lisinopril. Bactrim would need to be continued due to transplant status Leukocytosis, likely from prednisone use, wbc 15.9, cdiff negative- r/o other infectious eitologies Chest xray reviewed and shows elevation of the right hemidiaphragm with suspected chronic pleural change along the right lateral chest. Lungs appear clear, calcified lymph nodes in the mediastinum. -UA ordered -Trend CBC -Stool studies ordered enteric path, enterovirus, ova and parasites Immunosuppressive therapy, history of lung transplant 6 years ago -Will continue medications - verified with [facility] clinical training coordinator DVT prophylaxis: heparin This note was transcribed by tamiko [Marnie Johnson]. I, Dr. Russell Dailey personally performed the history, physical exam, and medical decision making; and confirmed the accuracy of the information in the transcribed note. Authenticated by Dr. Russell Dailey on 05/30/17 at 02:02. Discussed Condition With Patient and RN Physician Certification 2 Midnight Certification Type: Admission for Inpatient Services Order for Inpatient Services The services are ordered in accordance with Medicare regulations or non- Medicare payer requirements, as applicable. In the case of services not specified as inpatient-only, they are appropriately provided as inpatient services in accordance with the 2-midnight benchmark. Estimated LOS (days): 2 days is the estimated time the patient will need to remain in the hospital, assuming treatment plan goals are met and no additional complications. Post-Hospital Plan: Home Problem Qualifiers (1) Intractable nausea and vomiting: Qualified Codes: R11.2 - Nausea with vomiting, unspecified (2) Leukocytosis: Qualified Codes: D72.825 - Bandemia Marnie Johnson May 30, 2017 02:13 Russell Dailey MD May 30, 2017 03:12
[2017-05-30] MEDS: ONDANSETRON HCL 4 MG/2 ML VIAL IV PUSH PRN ×3 (02:25→17:46)
[2017-05-30] MEDS ORDERED: SODIUM CHLOR 0.9% 1000 ML INJ 1,000 ML IV SCH (03:00)
[2017-05-30] MEDS ORDERED: PILL SPLITTER OTHER PRN (03:15)
[2017-05-30] MEDS ORDERED: NIAC500T4 PO (04:35)
[2017-05-30] MEDS ORDERED: ZOFR4TAB PO (04:35)
[2017-05-30] MEDS ORDERED: BACT400T PO (04:35)
[2017-05-30] MEDS ORDERED: PRAV20TA2 PO (04:35)
[2017-05-30] MEDS ORDERED: HYDR-3288 PO (04:35)
[2017-05-30] MEDS ORDERED: PROT40TA PO (04:35)
[2017-05-30] MEDS ORDERED: CALC0.25 PO (04:35)
[2017-05-30] MEDS ORDERED: ACYC400T PO (04:35)
[2017-05-30] MEDS ORDERED: ACETAMINOPHEN/HYDROcodone 325 MG/7.5 MG TAB PO PRN (04:45)
[2017-05-30] MEDS ORDERED: SIROLIMUS 1 MG TAB PO SCH (06:00)
[2017-05-30] MEDS: PANTOPRAZOLE SOD 40 MG DELAYED RELEASE TAB PO SCH ×2 (07:57→17:21)
[2017-05-30] MEDS ORDERED: PRAVASTATIN SOD 20 MG TAB PO SCH (09:00)
[2017-05-30] MEDS ORDERED: SIROLIMUS 1 MG TAB PO ONE (11:00)
--- NOTE | 2017-05-30 11:17 | PD.CONS ---
HPI Service Nephrology Consult Requested By Reason for Consult Acute on CKD Primary Care Physician No Primary Care Physician History of Present Illness This is a 67 y/o male with extensive PMH including sarcoidosis s/p lung transplant. He also has CKD 4 from calcineurin inhibitor usage and is on the list at [facility] for renal transplant. He has a baseline creatinine of 2.8-3, and presents with creatinine of 3.2, K 5.4, C02 19. He reports nausea/vomiting/ diarrhea for several days and decreased urine output. We were consulted for renal management. His blood pressure is borderline low overnight, and he is requesting antiemetic currently. (Lissa Rojas) Review of Systems Constitutional: COMPLAINS OF: Fatigue, DENIES: Fever Gastrointestinal: COMPLAINS OF: Diarrhea, Nausea, Vomiting, DENIES: Abdominal pain, Black stools, Bloody stools (Lissa Rojas) Past Family Social History Allergies: Coded Allergies: No Known Allergies (Unverified , 05/29/17) Past Medical History CKD stage 4, baseline Creatinine 2.8-3 HTN Sarcoidosis Afib in the past skin cancer Past Surgical History lung transplant with immunosuppressants Multiple skin cancer removal Reported Medications Acyclovir 400 mg by mouth twice a day Calcitriol 0.25 g every other day. Norco7.5 mg/325 one tablet by mouth every 6 hours when necessary for pain. Lisinopril 5 mg by mouth daily. Metoprolol 50 mg by mouth twice a day. Niacinamide 500 g by mouth twice a day Zofran when necessary for nausea Proton X 40 mg by mouth twice a day Pravastatin 20 mg by mouth twice a day Bactrim single strength by mouth daily on Monday, Monday, Monday Active Ordered Medications Current Medications Medications (Trade) Dose Ordered Sig/Adrianne Route Start Time Stop Time Status Last Admin (NS Flush) 2 ml UNSCH PRN IV FLUSH 05/29/17 22:15 (NS Flush) 2 ml BID IV FLUSH 05/30/17 09:00 (Narcan Inj) 0.4 mg UNSCH PRN IV 05/29/17 22:15 (Zofran Inj) 4 mg Q6H PRN IV PUSH 05/30/17 02:00 05/30/17 02:25 (SandIMMUNE) 50 mg BID PO 05/30/17 09:00 (Deltasone) 0.5 mg DAILY PO 05/30/17 09:00 (Pill Splitter) 1 ea UNSCH PRN OTHER 05/30/17 03:15 (Bactrim 400-80 Mg) 1 tab MoTuSa@0900 PO 05/30/17 09:00 (Zovirax) 400 mg BID PO 05/30/17 09:00 ([place] 7.5-325 Mg) 1 tab Q6H PRN PO 05/30/17 04:45 (Protonix) 40 mg BIDAC PO 05/30/17 07:00 05/30/17 07:57 (Pravachol) 20 mg BID PO 05/30/17 09:00 (Slo-Niacin) 500 mg BID@0900,1800 PO 05/30/17 09:00 Non-Formulary Medication SIROLIMUS 0.5 MG TABLET... 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, retired full code (Lissa Rojas) Physical Exam Vital Signs Vital Signs Date Time Temp Pulse Resp B/P (MAP) Pulse Ox O2 Delivery O2 Flow Rate FiO2 05/30/17 09:11 86 16 137/70 (92) 97 Room Air 05/30/17 07:10 102 16 111/69 (83) 98 Room Air 05/30/17 06:42 99 93/52 (66) 96 Room Air 05/30/17 06:02 104 113/66 (82) 99 Room Air 05/30/17 05:20 104 117/63 (81) 98 Room Air 05/30/17 05:01 96 20 107/57 (74) 97 Room Air 05/30/17 04:43 100 95/62 (73) 05/30/17 04:14 100 81/52 (62) 97 05/30/17 03:39 100 82/54 (63) 97 Room Air 05/29/17 19:57 100 90/56 (67) 97 Room Air 05/29/17 19:12 Room Air 05/29/17 19:12 Room Air 05/29/17 18:41 97.3 104 18 131/62 (85) Physical Exam Middle aged male, awake and answers questions but eyes closed right face with dressing intact S1/S2, RRR no murmurs Abd: soft, non tender lungs: decreased in bases ext: no edema, skin intact Laboratory Laboratory Tests Test 05/29/17 19:21 05/29/17 20:40 05/29/17 21:08 Prothrombin Time 10.6 Prothromb Time International Ratio 1.0 Activated Partial Thromboplast Time 21.9 Blood Urea Nitrogen 47 Creatinine 3.22 Random Glucose 124 Total Protein 6.5 Albumin 3.2 Calcium Level 8.6 Magnesium Level 1.6 Alkaline Phosphatase 44 Aspartate Amino Transf (AST/SGOT) 13 Alanine Aminotransferase (ALT/SGPT) 22 Total Bilirubin 0.7 Sodium Level 141 Potassium Level 5.4 Chloride Level 111 Carbon Dioxide Level 19.9 Anion Gap 10 Estimat Glomerular Filtration Rate 19 Total Creatine Kinase 59 Troponin I LESS THAN 0.02 White Blood Count 15.9 Red Blood Count 4.94 Hemoglobin 14.5 Hematocrit 44.5 Mean Corpuscular Volume 90.1 Mean Corpuscular Hemoglobin 29.3 Mean Corpuscular Hemoglobin Concent 32.5 Red Cell Distribution Width 13.9 Platelet Count 122 Mean Platelet Volume 8.0 Neutrophils (%) (Auto) 90.6 Lymphocytes (%) (Auto) 2.6 Monocytes (%) (Auto) 6.2 Eosinophils (%) (Auto) 0.1 Basophils (%) (Auto) 0.5 Neutrophils # (Auto) 14.4 Lymphocytes # (Auto) 0.4 Monocytes # (Auto) 1.0 Eosinophils # (Auto) 0.0 Basophils # (Auto) 0.1 CBC Comment AUTO DIFF Differential Total Cells Counted 100 Neutrophils % (Manual) 82 Band Neutrophils % 11 Lymphocytes % 3 Monocytes % 3 Neutrophils # (Manual) 14.9 Metamyelocytes 1 Differential Comment FINAL DIFF MANUAL Platelet Estimate LOW Platelet Morphology Comment NORMAL Ovalocytes 1+ Acanthocytes OCC Lactic Acid Level 1.2 Lipase 183 Stool C. difficile Toxin (PCR) NEGATIVE Stl C. difficile Toxin Epiderm 027 PRESUMPTIVE NEGATIVE Date/Time Source Procedure Growth Status 05/29/17 19:55 Blood Peripheral Aerobic Blood Culture Pending Received 05/29/17 19:55 Blood Peripheral Anaerobic Blood Culture Pending Received 05/29/17 21:08 Stool Stool Cryptosporidium Exam Pending Received 05/29/17 21:08 Stool Stool Giardia Antigen (DUDLEY) Pending Received (Lissa Rojas) Result Diagram: 05/29/17203905/29/17 192 Imaging Last 72 hours Impressions Chest X-Ray 05/29/17 1816 Signed Impressions: Service Date/Time: Monday, May 29, 2017 18:29 - CONCLUSION: 1. Elevation of the right hemidiaphragm with suspected chronic pleural change along the right lateral chest. Prior exams are unavailable. 2. The lungs themselves appear grossly clear. 3. Calcified lymph nodes in the mediastinum. Bi Wells MD (Lissa Rojas) Assessment and Plan Problem List: (1) Acute kidney injury superimposed on chronic kidney disease ICD Codes: N17.9 - Acute kidney failure, unspecified; N18.9 - Chronic kidney disease, unspecified Status: Acute Plan: He has CKD stage 4 and is on waiting list for renal transplant 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, baseline creatinine 2.8-3 HARMAN from prerenal azotemia from vomiting and diarrhea, also hypotension, may have progressed to ATN bicarb drip ordered K 5.4, C02 19.9, should improve with fluids he has not been making much urine, follow output obtain urine electrolytes renal US ordered avoid nephrotoxins renal panel in AM of note he is on Bactrim three times weekly, which needs to be continued at this time (2) Intractable nausea and vomiting ICD Codes: R11.2 - Nausea with vomiting, unspecified Status: Acute Plan: also with diarrhea stool sample has been sent for studies continue antiemetics and IVF CT reviewed (3) S/P lung transplant ICD Codes: Z94.2 - Lung transplant status Plan: continue immunosuppression as ordered (Lissa Rojas) Assessment and Plan patient was seen and examined. Agree with above assessment and plan. Continue IVF. Avoid nephrotoxic agents. Acute on chronic kidney disease could be secondary to pre-renal azotemia. 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 Added bicarbonate to IVF. He does have hyperkalemia, monitor. Patient is s/p dual lung transplant because of progressive idiopathic pulmonary fibrosis. (Brayden Trujillo MD) Problem Qualifiers (1) Intractable nausea and vomiting: Qualified Codes: R11.2 - Nausea with vomiting, unspecified CrystalLissa gonzalez May 30, 2017 11:17 Brayden Trujillo MD May 30, 2017 11:39
[2017-05-30] MEDS: SODIUM CHLORIDE 0.9% FLUSH 10 ML FLUSH IV FLUSH SCH ×2 (11:25→22:19)
--- NOTE | 2017-05-30 11:30 | RADRPT ---
EXAM DATE/TIME: 05/30/2017 10:31 [place] COMPARISON: No previous studies available for comparison. INDICATIONS : Increased BUN/Creatinine. MEDICAL HISTORY : Hypertension. Sarcoidosis. Chronic kidney disease. Pulmonary fibrosis. Skin cancer. SURGICAL HISTORY : Lung transplant. Skin cancer removal. ENCOUNTER: Initial ACUITY: 1 day PAIN SCORE: 0/10 LOCATION: Bilateral flank MEASUREMENTS: RIGHT KIDNEY: 8.3 x 4.8 x 4.6 cm LEFT KIDNEY: 9.3 x 6.2 x 4.5 cm FINDINGS: The kidneys demonstrates increased echogenicity of the cortex compatible with medical renal disease. No hydronephrosis or mass lesions are identified. There are simple cysts bilaterally the largest cary uring 1.1 cm bilaterally. A small amount of ascites is present in the left upper quadrant. CONCLUSION: 1. Echogenic kidneys bilaterally compatible with medical renal disease. Orlando Bethea MD on May 30, 2017 at 11:27 Board Certified Radiologist. This report was verified electronically.
[2017-05-30] MEDS: SODIUM CHLORIDE 23.4% INJ 38.5 MEQ, SODIUM BICARBONATE 8.4% INJ 75 MEQ in WATER STERILE... IV SCH (11:40)
--- NOTE | 2017-05-30 13:08 | EKG ---
Date Performed: 05/29/2017 Time Performed: 19:27:30 PTAGE: 67 years EKG: SINUS TACHYCARDIA POSSIBLE LEFT ATRIAL ENLARGEMENT POSSIBLE RIGHT VENTRICULAR CONDUCTION DE LAY NONSPECIFIC ST & T-WAVE ABNORMALITY ABNORMAL RHYTHM ECG NO PREVIOUS TRACING DOCTOR: Mena Moreno Interpretating Date/Time 05/30/2017 13:05:28
[2017-05-30] MEDS: cycloSPORINE 25 MG CAP PO SCH ×2 (13:40→22:16)
[2017-05-30] MEDS: SULFAMETHOXAZOLE-TRIMETHOPRIM 400-80 MG TAB PO SCH (13:40)
[2017-05-30] MEDS: predniSONE 1 MG TAB PO SCH (13:43)
--- NOTE | 2017-05-30 13:58 | HHI.PR ---
Subjective Remarks Follow-up 1 every on chronic renal failure and diarrhea/emesis Patient stated that he had 3 episodes watery diarrhea since midnight. He had 6 yesterday. Patient stated that he had an episode of emesis last night. He stated that this has been intermittently chronic. He stated that this was due to chronic use of pravastatin and he firmly believes this is a reason why he had emesis. Patient asking to see GI. Patient remains afebrile. Spoke with patient lung transplant a "rn palliative care Aidee Banuelos in regards to patient's care and notify her that our hospital only carries sirolimus 1 mg tablets. Per Xin he may take 1 mg every other day until facility is able to obtain 0.5 mg tablets. She stated that no levels need to be monitored and to continue with his current immunosuppressants. Objective Vitals Vital Signs Date Time Temp Pulse Resp B/P (MAP) Pulse Ox O2 Delivery O2 Flow Rate FiO2 05/30/17 13:00 101 05/30/17 11:10 96.9 104 16 116/60 (78) 100 05/30/17 09:11 86 16 137/70 (92) 97 Room Air 05/30/17 07:10 102 16 111/69 (83) 98 Room Air 05/30/17 06:42 99 93/52 (66) 96 Room Air 05/30/17 06:02 104 113/66 (82) 99 Room Air 05/30/17 05:20 104 117/63 (81) 98 Room Air 05/30/17 05:01 96 20 107/57 (74) 97 Room Air 05/30/17 04:43 100 95/62 (73) 05/30/17 04:14 100 81/52 (62) 97 05/30/17 03:39 100 82/54 (63) 97 Room Air 05/29/17 19:57 100 90/56 (67) 97 Room Air 05/29/17 19:12 Room Air 05/29/17 19:12 Room Air 05/29/17 18:41 97.3 104 18 131/62 (85) I/O 05/29/17 05/29/17 05/29/17 05/30/17 05/30/17 05/30/17 07:00 15:00 23:00 07:00 15:00 23:00 Intake Total 2100 ml Balance 2100 ml Intake IV Total 2100 ml Result Diagram: 05/29/17203905/29/171920 Objective Remarks GENERAL: in NAD CARDIOVASCULAR: Regular rate and rhythm without murmurs, gallops, or rubs. RESPIRATORY: Breath sounds equal bilaterally. No accessory muscle use. GASTROINTESTINAL: Abdomen soft, non-tender, nondistended. Medications and IVs Current Medications Ondansetron HCl (Zofran Inj) 4 mg ONCE ONCE IV PUSH Last administered on 18:30; Start 05/29/17 at 18:30; Stop 05/29/17 at 18:31; Status DC Pantoprazole Sodium (Protonix Inj) 40 mg ONCE ONCE IVP Last administered on 20:11; Start 05/29/17 at 19:30; Stop 05/29/17 at 19:32; Status DC Sodium Chloride 1,000 ml @ 1,000 mls/hr Q1H IV Last administered on 05/29/17 20:10; Start 05/29/17 at 19:22; Stop 05/29/17 at 20:21; Status DC Famotidine (Pepcid Inj) 20 mg ONCE ONCE IV PUSH Last administered on 20:10; Start 05/29/17 at 19:30; Stop 05/29/17 at 19:32; Status DC Metoclopramide HCl (Reglan Inj) 10 mg ONCE ONCE IV PUSH Last administered on 20:11; Start 05/29/17 at 19:30; Stop 05/29/17 at 19:32; Status DC Sodium Chloride 1,000 ml @ 1,000 mls/hr Q1H IV Last administered on 05/29/17 23:26; Start 05/29/17 at 21:24; Stop 05/29/17 at 22:23; Status DC Metronidazole 100 ml @ 100 mls/hr ONCE ONCE IV Last administered on 23:27; Start 05/29/17 at 22:00; Stop 05/29/17 at 22:59; Status DC Sodium Chloride (NS Flush) 2 ml UNSCH PRN IV FLUSH FLUSH AFTER USING IV ACCESS ; Start 05/29/17 at 22:15 Sodium Chloride (NS Flush) 2 ml BID IV FLUSH Last administered on 05/30/17 11: 25; Start 05/30/17 at 09:00 Naloxone HCl (Narcan Inj) 0.4 mg UNSCH PRN IV SEE LABEL COMMENTS; Start at 22:15 Ondansetron HCl (Zofran Inj) 4 mg Q6H PRN IV PUSH nausea Last administered on 11:24; Start 05/30/17 at 02:00 Sodium Chloride 1,000 ml @ 100 mls/hr Q10H IV Last administered on 05/30/17 04:22; Start 05/30/17 at 03:00; Stop 05/30/17 at 09:32; Status DC Cyclosporine (SandIMMUNE) 50 mg BID PO Last administered on 05/30/17 13:40; Start 05/30/17 at 09:00 Prednisone (Deltasone) 0.5 mg DAILY PO Last administered on 05/30/17 13:43; Start 05/30/17 at 09:00 Sirolimus (Rapamune) 0.5 mg DAILY@0600 PO ; Start 05/30/17 at 06:00; Stop at 09:11; Status DC Miscellaneous (Pill Splitter) 1 ea UNSCH PRN OTHER SEE LABEL COMMENTS; Start at 03:15 Trimethoprim/ Sulfamethoxazole (Bactrim 400-80 Mg) 1 tab MoTuSa@0900 PO Last administered on 05/30/17 13:40; Start 05/30/17 at 09:00 Acyclovir (Zovirax) 400 mg BID PO ; Start 05/30/17 at 09:00 Acetaminophen/ Hydrocodone Bitart ([place] 7.5-325 Mg) 1 tab Q6H PRN PO PAIN 1- 10; Start 05/30/17 at 04:45 Pantoprazole Sodium (Protonix) 40 mg BIDAC PO Last administered on 05/30/17 07 :57; Start 05/30/17 at 07:00 Pravastatin Sodium (Pravachol) 20 mg BID PO ; Start 05/30/17 at 09:00 Niacin (Slo-Niacin) 500 mg BID@0900,1800 PO ; Start 05/30/17 at 09:00 Non-Formulary Medication SIROLIMUS 0.5 MG TABLET... DAILY@0600 PO ; Start at 06:00 Sodium Chloride 38.5 meq/Sodium Bicarbonate 75 meq/Sterile Water 1,084.625 ml @ 75 mls/hr [id number] IV Last administered on 05/30/17t 11:40; Start 05/30/17 at 10 :00 Sirolimus (Rapamune) 1 mg ONCE ONCE PO Last administered on 05/30/17 13:41; Start 05/30/17 at 11:00; Stop 05/30/17 at 11:01; Status DC A/P Problem List: (1) Acute kidney injury superimposed on chronic kidney disease ICD Code: N17.9 - Acute kidney failure, unspecified; N18.9 - Chronic kidney disease, unspecified Status: Acute (2) Intractable nausea and vomiting ICD Code: R11.2 - Nausea with vomiting, unspecified Status: Acute (3) Leukocytosis ICD Code: D72.829 - Elevated white blood cell count, unspecified Status: Acute Assessment and Plan 67 y/o male with a 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 Acute Kidney injury, superimposed on CKD, creatine 3.2, baseline around 2.8-3, likely dehydration from nausea, vomiting and diarrhea -IVF for hydration -Avoid nephrotoxins as much as possible. Hold lisinopril. Bactrim would need to be continued due to transplant status -Coding Team Lead consulted and started patient on IV bicarbonate. Continue management per parboiler. Leukocytosis, likely from prednisone use, wbc 15.9, Chest xray reviewed and shows elevation of the right hemidiaphragm with suspected chronic pleural change along the right lateral chest. Lungs appear clear, calcified lymph nodes in the mediastinum. -Still pending UA. -Trend CBC -Stool studies cultures negative. C. difficile was also negative. Diarrhea/emesis -More likely secondary to gastroenteritis. So far stool studies are negative. Patient requesting to see GI. Will consult GI. Patient was treated empirically with Flagyl. Continue Flagyl. Immunosuppressive therapy, history of lung transplant 6 years ago -continue medications - verified with [facility] optometric coordinator -Per Xin Banuelos Transplant coordination can give sirolimus1 mg every other day until 0.5 mg tablets obtained. Also dealt with pharmacist in regards to ordering this. DVT prophylaxis: heparin Problem Qualifiers (1) Intractable nausea and vomiting: Qualified Codes: R11.2 - Nausea with vomiting, unspecified (2) Leukocytosis: Qualified Codes: D72.825 - Bandemia Beatrice Clark MD May 30, 2017 13:57
[2017-05-30] MEDS: ACYCLOVIR 200 MG CAP PO SCH ×2 (14:00→22:16)
--- NOTE | 2017-05-30 16:03 | PD.CONS ---
HPI History of Present Illness This is a 67 year old male with hx lung transplant on immunosuppression, CKD, HTN, sarcoidosis, pulmonary fibrosis who presented w/ n/v/diarrhea, epigastric pain onset yesterday. He had 6 BM yesterday and 4 today, loose and water. Last vomited yesterday. NO blood in emesis or stool, no tarry stool, no significant weight loss. Denies sick contacts, change in diet. REcently started vitamin A supplementation. Denies fever. Feels better today, no vomit , tolerating limited clear fluids. His epigastric pain is improved as well. Last had colonoscopy2 months [facility], polyps were found. Never had EGD (Juany Orozco) PFSH Past Medical History HTN CKD stage 4 Sarcoidosis Afib prior to transplant Past Surgical History lung transplant with immunosuppressants Multiple skin cancer removal (Juany Orozco) Coded Allergies: No Known Allergies (Unverified , 05/29/17) Family History Family history of Colon cancer Social History Tobacco use: Denies Alcohol use: Denies Illicit drug use: Denies (Juany Orozco) Review of Systems Constitutional: DENIES: Fever Ears, nose, mouth, throat: DENIES: Throat pain Respiratory: DENIES: Hemoptysis Gastrointestinal: COMPLAINS OF: Abdominal pain, Diarrhea, Nausea, Vomiting, DENIES: Black stools, Bloody stools Genitourinary: DENIES: Hematuria Musculoskeletal: DENIES: Joint Swelling Integumentary: DENIES: Jaundice Hematologic/lymphatic: DENIES: Bruising Psychiatric: DENIES: Confusion (Juany Orozco) GI Exam Vitals I&O Vital Signs Date Time Temp Pulse Resp B/P (MAP) Pulse Ox O2 Delivery O2 Flow Rate FiO2 05/30/17 13:00 101 05/30/17 11:10 96.9 104 16 116/60 (78) 100 05/30/17 09:11 86 16 137/70 (92) 97 Room Air 05/30/17 07:10 102 16 111/69 (83) 98 Room Air 05/30/17 06:42 99 93/52 (66) 96 Room Air 05/30/17 06:02 104 113/66 (82) 99 Room Air 05/30/17 05:20 104 117/63 (81) 98 Room Air 05/30/17 05:01 96 20 107/57 (74) 97 Room Air 05/30/17 04:43 100 95/62 (73) 05/30/17 04:14 100 81/52 (62) 97 05/30/17 03:39 100 82/54 (63) 97 Room Air 05/29/17 19:57 100 90/56 (67) 97 Room Air 05/29/17 19:12 Room Air 05/29/17 19:12 Room Air 05/29/17 18:41 97.3 104 18 131/62 (85) I/O 05/29/17 05/29/17 05/29/17 05/30/17 05/30/17 05/30/17 07:00 15:00 23:00 07:00 15:00 23:00 Intake Total 2100 ml Balance 2100 ml Intake IV Total 2100 ml Imaging Last Impressions Renal Ultrasound 05/30/17 0929 Signed Impressions: Service Date/Time: Tuesday, May 30, 2017 10:31 - CONCLUSION: 1. Echogenic kidneys bilaterally compatible with medical renal disease. Orlando Bethea MD Chest X-Ray 05/29/171815 Signed Impressions: Service Date/Time: Monday, May 29, 2017 18:29 - CONCLUSION: 1. Elevation of the right hemidiaphragm with suspected chronic pleural change along the right lateral chest. Prior exams are unavailable. 2. The lungs themselves appear grossly clear. 3. Calcified lymph nodes in the mediastinum. Bi Wells MD Laboratory Test 05/29/17 19:21 05/29/17 20:40 05/29/17 21:08 Prothrombin Time 10.6 SEC Prothromb Time International Ratio 1.0 RATIO Activated Partial Thromboplast Time 21.9 SEC Blood Urea Nitrogen 47 MG/DL Creatinine 3.22 MG/DL Random Glucose 124 MG/DL Total Protein 6.5 GM/DL Albumin 3.2 GM/DL Calcium Level 8.6 MG/DL Magnesium Level 1.6 MG/DL Alkaline Phosphatase 44 U/L Aspartate Amino Transf (AST/SGOT) 13 U/L Alanine Aminotransferase (ALT/SGPT) 22 U/L Total Bilirubin 0.7 MG/DL Sodium Level 141 MEQ/L Potassium Level 5.4 MEQ/L Chloride Level 111 MEQ/L Carbon Dioxide Level 19.9 MEQ/L Anion Gap 10 MEQ/L Estimat Glomerular Filtration Rate 19 ML/MIN Total Creatine Kinase 59 U/L Troponin I LESS THAN 0.02 NG/ML White Blood Count 15.9 TH/MM3 Red Blood Count 4.94 MIL/MM3 Hemoglobin 14.5 GM/DL Hematocrit 44.5 % Mean Corpuscular Volume 90.1 FL Mean Corpuscular Hemoglobin 29.3 PG Mean Corpuscular Hemoglobin Concent 32.5 % Red Cell Distribution Width 13.9 % Platelet Count 122 TH/MM3 Mean Platelet Volume 8.0 FL Neutrophils (%) (Auto) 90.6 % Lymphocytes (%) (Auto) 2.6 % Monocytes (%) (Auto) 6.2 % Eosinophils (%) (Auto) 0.1 % Basophils (%) (Auto) 0.5 % Neutrophils # (Auto) 14.4 TH/MM3 Lymphocytes # (Auto) 0.4 TH/MM3 Monocytes # (Auto) 1.0 TH/MM3 Eosinophils # (Auto) 0.0 TH/MM3 Basophils # (Auto) 0.1 TH/MM3 CBC Comment AUTO DIFF Differential Total Cells Counted 100 Neutrophils % (Manual) 82 % Band Neutrophils % 11 % Lymphocytes % 3 % Monocytes % 3 % Neutrophils # (Manual) 14.9 TH/MM3 Metamyelocytes 1 % Differential Comment FINAL DIFF MANUAL Platelet Estimate LOW Platelet Morphology Comment NORMAL Ovalocytes 1+ Acanthocytes OCC Lactic Acid Level 1.2 mmol/L Lipase 183 U/L Stool C. difficile Toxin (PCR) NEGATIVE Stl C. difficile Toxin Epiderm 027 PRESUMPTIVE NEGATIVE Date/Time Source Procedure Growth Status 05/29/17 19:55 Blood Peripheral Aerobic Blood Culture - Preliminary NO GROWTH IN 1 DAY Resulted 05/29/17 19:55 Blood Peripheral Anaerobic Blood Culture - Preliminary NO GROWTH IN 1 DAY Resulted 05/29/17 21:08 Stool Stool Cryptosporidium Exam Pending Received 05/29/17 21:08 Stool Stool Giardia Antigen (DUDLEY) Pending Received Physical Examination HEENT: PERRL; normocephalic; atraumatic; no jaundice. bandage right face CHEST: CTA CARDIAC: RRR ABDOMEN: Soft, nondistended, nontender; no hepatosplenomegaly; bowel sounds are present in all four quadrants. EXTREMITIES: No clubbing, cyanosis, or edema. SKIN: Normal; no rash; no jaundice. [employer]PER[employer]MENT: No focal deficits; alert and oriented times three. (Juany Orozco) Assessment and Plan Plan ASSESSMENT - n/v/diarrhea, epigastric pain - suspect gastroenteritis. clinically improving. Given Flagyl on admission empirically. afebrile. colonoscopy at [facility] 2m ago, polyps found. stool cx neg for enteric pathogens, c diff. Cryptosporidia and giardia pending. PLAN - clears - monitor labwork - supportive care - consider EGD if fails to improve This pt seen by myself and Dr Pichardo and this note is written on his behalf (Juany Orozco) Physician Comments Patient would like to hold on any endoscopic evaluation for now, will continue conservative treatment . Further recommendations to follow. (Nigel Pichardo MD) Juany Orozco May 30, 2017 16:03 Nigel Pichardo MD May 30, 2017 20:33
[2017-05-30] MEDS: NIACIN 500 MG EXTENDED RELEASE TAB PO SCH ×2 (16:54→19:58)
[2017-05-30 17:26] LABS: AUTOMATED NEUTROPHIL # 9.2 TH/MM3 (1.8-7.7); BASOPHIL # 0.1 TH/MM3 (0-0.2); BASOPHIL % 1.2 % (0.0-2.0); EOSINOPHIL # 0.1 TH/MM3 (0-0.4); EOSINOPHIL % 1.1 % (0.0-4.0); HEMO FLAGS DIFF FINAL; LYMPH % 5.1 % (9.0-44.0); LYMPHOCYTE # 0.6 TH/MM3 (1.0-4.8); MEAN CELL VOLUME 89.9 FL (80.0-100.0); MEAN CORPUSCULAR HEMOGLOBIN 29.6 PG (27.0-34.0); MEAN CORPUSCULAR HGB CONC 32.9 % (32.0-36.0); MONO % 10.7 % (0.0-8.0); NEUT % 81.9 % (16.0-70.0); PLATELET COUNT 173 TH/MM3 (150-450); RED BLOOD COUNT 4.12 MIL/MM3 (4.50-5.90); WHITE BLOOD COUNT 11.2 TH/MM3 (4.0-11.0)
[2017-05-30 17:33] LABS: BICARBONATE 17.2 MEQ/L (21.0-32.0); POTASSIUM 4.7 MEQ/L (3.5-5.1)
[2017-05-31] VITALS (11 sets, daily range): BP systolic 138–159; BP diastolic 71–86; PULSE 93–170; RESP 18–20; TEMP 97.2–98.7; O2SAT 96–99
[2017-05-31] MEDS: SODIUM CHLORIDE 23.4% INJ 38.5 MEQ, SODIUM BICARBONATE 8.4% INJ 75 MEQ in WATER STERILE... IV SCH ×3 (01:14→21:55)
[2017-05-31] MEDS: ONDANSETRON HCL 4 MG/2 ML VIAL IV PUSH PRN (01:18)
[2017-05-31] MEDS: PANTOPRAZOLE SOD 40 MG DELAYED RELEASE TAB PO SCH ×2 (06:40→16:00)
[2017-05-31] MEDS: SIROLIMUS 0.5 MG PO SCH (06:41)
[2017-05-31] MEDS: NIACIN 500 MG EXTENDED RELEASE TAB PO SCH ×2 (08:57→18:24)
[2017-05-31] MEDS: predniSONE 1 MG TAB PO SCH (08:57)
[2017-05-31] MEDS: ACYCLOVIR 200 MG CAP PO SCH ×2 (08:57→20:57)
[2017-05-31] MEDS: cycloSPORINE 25 MG CAP PO SCH ×2 (08:57→20:57)
[2017-05-31] MEDS: SODIUM CHLORIDE 0.9% FLUSH 10 ML FLUSH IV FLUSH SCH ×2 (08:58→20:57)
--- NOTE | 2017-05-31 09:59 | HHI.PR ---
Subjective Remarks Follow-up for diarrhea and acute renal failure Patient stated that diarrhea has improved. He stated that he was able take tolerate oral intake today. Patient stated that he did urinate around 4 AM. His urination was not measured. Otherwise patient has no other complaints. Patient's nurse in regards to measuring patient's urine. Order was placed on admission for this. Patient also told to save his urine and notify his nurse. Objective Vitals Vital Signs Date Time Temp Pulse Resp B/P (MAP) Pulse Ox O2 Delivery O2 Flow Rate FiO2 05/31/17 01:24 98.7 106 18 140/71 (94) 97 05/31/17 00:04 101 05/30/17 20:00 98.6 102 18 135/72 (93) 98 05/30/17 20:00 108 05/30/17 16:00 101 05/30/17 16:00 98.1 105 16 123/67 (85) 100 05/30/17 13:00 101 05/30/17 11:10 96.9 104 16 116/60 (78) 100 I/O 05/30/17 05/30/17 05/30/17 05/31/17 05/31/17 05/31/17 07:00 15:00 23:00 07:00 15:00 23:00 Intake Total 2100 ml Balance 2100 ml Intake IV Total 2100 ml # Voids 1 1 # Bowel Movements 2 1 Result Diagram: 05/30/17 1557 05/30/17 1557 Objective Remarks GENERAL: in NAD CARDIOVASCULAR: Regular rate and rhythm without murmurs, gallops, or rubs. RESPIRATORY: Breath sounds equal bilaterally. No accessory muscle use. GASTROINTESTINAL: Abdomen soft, non-tender, nondistended. Medications and IVs Current Medications Ondansetron HCl (Zofran Inj) 4 mg ONCE ONCE IV PUSH Last administered on 18:30; Start 05/29/17 at 18:30; Stop 05/29/17 at 18:31; Status DC Pantoprazole Sodium (Protonix Inj) 40 mg ONCE ONCE IVP Last administered on 20:11; Start 05/29/17 at 19:30; Stop 05/29/17 at 19:32; Status DC Sodium Chloride 1,000 ml @ 1,000 mls/hr Q1H IV Last administered on 05/29/17 20:10; Start 05/29/17 at 19:22; Stop 05/29/17 at 20:21; Status DC Famotidine (Pepcid Inj) 20 mg ONCE ONCE IV PUSH Last administered on 20:10; Start 05/29/17 at 19:30; Stop 05/29/17 at 19:32; Status DC Metoclopramide HCl (Reglan Inj) 10 mg ONCE ONCE IV PUSH Last administered on 20:11; Start 05/29/17 at 19:30; Stop 05/29/17 at 19:32; Status DC Sodium Chloride 1,000 ml @ 1,000 mls/hr Q1H IV Last administered on 05/29/17 23:26; Start 05/29/17 at 21:24; Stop 05/29/17 at 22:23; Status DC Metronidazole 100 ml @ 100 mls/hr ONCE ONCE IV Last administered on 23:27; Start 05/29/17 at 22:00; Stop 05/29/17 at 22:59; Status DC Sodium Chloride (NS Flush) 2 ml UNSCH PRN IV FLUSH FLUSH AFTER USING IV ACCESS ; Start 05/29/17 at 22:15 Sodium Chloride (NS Flush) 2 ml BID IV FLUSH Last administered on 05/30/17 11: 25; Start 05/30/17 at 09:00 Naloxone HCl (Narcan Inj) 0.4 mg UNSCH PRN IV SEE LABEL COMMENTS; Start at 22:15 Ondansetron HCl (Zofran Inj) 4 mg Q6H PRN IV PUSH nausea Last administered on 01:18; Start 05/30/17 at 02:00 Sodium Chloride 1,000 ml @ 100 mls/hr Q10H IV Last administered on 05/30/17 04:22; Start 05/30/17 at 03:00; Stop 05/30/17 at 09:32; Status DC Cyclosporine (SandIMMUNE) 50 mg BID PO Last administered on 05/31/17 08:57; Start 05/30/17 at 09:00 Prednisone (Deltasone) 0.5 mg DAILY PO Last administered on 05/31/17 08:57; Start 05/30/17 at 09:00 Sirolimus (Rapamune) 0.5 mg DAILY@0600 PO ; Start 05/30/17 at 06:00; Stop at 09:11; Status DC Miscellaneous (Pill Splitter) 1 ea UNSCH PRN OTHER SEE LABEL COMMENTS; Start at 03:15 Trimethoprim/ Sulfamethoxazole (Bactrim 400-80 Mg) 1 tab MoTuSa@0900 PO Last administered on 05/30/17 13:40; Start 05/30/17 at 09:00 Acyclovir (Zovirax) 400 mg BID PO Last administered on 05/31/17 08:57; Start 05/30/17 at 09:00 Acetaminophen/ Hydrocodone Bitart ([place] 7.5-325 Mg) 1 tab Q6H PRN PO PAIN 1- 10; Start 05/30/17 at 04:45 Pantoprazole Sodium (Protonix) 40 mg BIDAC PO Last administered on 05/31/17 06 :40; Start 05/30/17 at 07:00 Pravastatin Sodium (Pravachol) 20 mg BID PO Last administered on 05/30/17 14: 01; Start 05/30/17 at 09:00; Stop 05/30/17 at 18:53; Status DC Niacin (Slo-Niacin) 500 mg BID@0900,1800 PO Last administered on 05/31/17 08: 57; Start 05/30/17 at 09:00 Non-Formulary Medication SIROLIMUS 0.5 MG TABLET... DAILY@0600 PO ; Start at 06:00; Status Future Hold Sodium Chloride 38.5 meq/Sodium Bicarbonate 75 meq/Sterile Water 1,084.625 ml @ 75 mls/hr [id number] IV Last administered on 05/31/17 01:14; Start 05/30/17 at 10 :00 Sirolimus (Rapamune) 1 mg ONCE ONCE PO Last administered on 05/30/17 13:41; Start 05/30/17 at 11:00; Stop 05/30/17 at 11:01; Status DC Pravastatin Sodium (Pravachol) 20 mg HS PO ; Start 05/31/17 at 21:00 A/P Problem List: (1) Acute kidney injury superimposed on chronic kidney disease ICD Code: N17.9 - Acute kidney failure, unspecified; N18.9 - Chronic kidney disease, unspecified Status: Acute (2) Intractable nausea and vomiting ICD Code: R11.2 - Nausea with vomiting, unspecified Status: Acute (3) Leukocytosis ICD Code: D72.829 - Elevated white blood cell count, unspecified Status: Acute Assessment and Plan 67 y/o male with a 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 Acute Kidney injury, superimposed on CKD, creatine 3.2, baseline around 2.8-3, likely dehydration from nausea, vomiting and diarrhea -IVF for hydration -Avoid nephrotoxins as much as possible. Hold lisinopril. Bactrim would need to be continued due to transplant status -[employer] Specialist consulted and started patient on IV bicarbonate. Continue management per mold polisher. -Kidney function worsened and repeat was 4.49. Will repeat creatinine today since last cranium was obtained late yesterday. -Dealt with patient's nurse stated that urine must be measured. Confirmed order was already placed in the EMR system. Leukocytosis, likely from prednisone use, wbc 15.9, Chest xray reviewed and shows elevation of the right hemidiaphragm with suspected chronic pleural change along the right lateral chest. Lungs appear clear, calcified lymph nodes in the mediastinum. -Still pending UA despite patient making urine at 4 AM. -Leukocytosis improving. -Stool studies cultures negative. C. difficile was also negative. Diarrhea/emesis -More likely secondary to gastroenteritis. So far stool studies are negative. GI consulted stated continue to stool studies. Immunosuppressive therapy, history of lung transplant 6 years ago -continue medications - verified with [facility] conservation coordinator -Per Xin Banuelos Transplant coordination can give sirolimus1 mg every other day until 0.5 mg tablets obtained. Also dealt with pharmacist in regards to ordering this. -Patient received 0.5 mg tablets this morning. Patient was not suppose to get this amount today. I d/w pharmacist in regards to plan so unsure how this happened. He received 1 mg yesterday. Will hold dose tomorrow and start his home dosage on 06/02/17. Patient is aware of the plan. DVT prophylaxis: heparin Discharge Planning Renal function is worsening patient needs continued hospitalization Problem Qualifiers (1) Intractable nausea and vomiting: Qualified Codes: R11.2 - Nausea with vomiting, unspecified (2) Leukocytosis: Qualified Codes: D72.825 - Bandemia Beatrice Clark MD May 31, 2017 09:59
--- NOTE | 2017-05-31 11:40 | HHI.NPPN ---
Subjective Renal Failure: Chronic, Acute, Stage IV Interval History Renal function is worse. Repeat labs in process. He has not made much urine. (Lissa Rojas) Review of Systems General Constitutional: Fatigue (Lissa Rojas) Objective Data Data Vital Signs Date Time Temp Pulse Resp B/P (MAP) Pulse Ox O2 Delivery O2 Flow Rate FiO2 05/31/17 07:30 97.2 111 20 159/73 (101) 97 05/31/17 01:24 98.7 106 18 140/71 (94) 97 05/31/17 00:04 101 05/30/17 20:00 98.6 102 18 135/72 (93) 98 05/30/17 20:00 108 05/30/17 16:00 101 05/30/17 16:00 98.1 105 16 123/67 (85) 100 05/30/17 13:00 101 (Lissa Rojas) -: 05/30/17 1557 05/30/17 1557 Imaging Last 72 hours Impressions Renal Ultrasound 05/30/17 0929 Signed Impressions: Service Date/Time: Tuesday, May 30, 2017 10:31 - CONCLUSION: 1. Echogenic kidneys bilaterally compatible with medical renal disease. Orlando Bethea MD Chest X-Ray 05/29/17 1816 Signed Impressions: Service Date/Time: Monday, May 29, 2017 18:29 - CONCLUSION: 1. Elevation of the right hemidiaphragm with suspected chronic pleural change along the right lateral chest. Prior exams are unavailable. 2. The lungs themselves appear grossly clear. 3. Calcified lymph nodes in the mediastinum. Bi Wells MD (Lissa Rojas) Physical Exam General Appearance: Well Developed, No Acute Distress, Comfortable (Lissa Rojas) Throat Throat Exam: Oral Mucosa [place] & Moist (Lissa Rojas) Pulmonary Resp Exam: Clear Bilaterally, Breath Sounds Equal (Lissa Rojas) Cardiology CV Exam: Regular, Normal Sinus Rhythm (Lissa Rojas) Gastrointestinal/Abdomen GI Exam: Soft, Non-Tender (Lissa Rojas) Musculoskeletal MS Exam: Joints Intact, Normal Tone, Good Strength (Lissa Rojas) Integumentary Skin Exam: Warm, Dry Skin Remarks right face bandaged (Lissa Rojas) Extremeties Extremities Exam: No Edema, Pedal Pulses Palpable (Lissa Rojas) Neurologic Neuro Exam: Alert, Awake, Oriented, Speech Clear, Moving All Extremities (Lissa Rojas) Psychiatric Psych Exam: Appropriate Responses (Lissa Rojas) Assessment/Plan Discussed Condition With: Patient Assessment Summary: HARMAN/Acute Renal Failure, Hypotension, CKD Stage IV Electrolyte Assessment: Metabolic Acidosis Problem List: (1) Acute kidney injury superimposed on chronic kidney disease ICD Codes: N17.9 - Acute kidney failure, unspecified; N18.9 - Chronic kidney disease, unspecified Status: Acute Plan: Baseline CKD stage 4 and is on waiting list for renal transplant at [facility] 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, baseline creatinine 2.8-3 HARMAN from prerenal azotemia from vomiting and diarrhea, also hypotension, may have progressed to ATN he was hypotensive overnight, may have suffered hypoperfusion injury urine output is minimal obtain bladder scan, renal US was negative continue bicarb drip awaiting UA and urine electrolyte avoid nephrotoxins renal panel in AM of note he is on Bactrim three times weekly, which needs to be continued at this time it is possible he may require dialysis this admission (2) Intractable nausea and vomiting ICD Codes: R11.2 - Nausea with vomiting, unspecified Status: Acute Plan: also with diarrhea stool sample has been sent for studies continue antiemetics and IVF CT reviewed (3) S/P lung transplant ICD Codes: Z94.2 - Lung transplant status Plan: continue immunosuppression as ordered he should be on Sirolimus 0.5 mg po daily also tacrolimus 50 mg po BID tacrolimus level has been ordered (Lissa Rojas) Plan patient was seen and examined. Renal function continues to get worse, may have suffered ATN due to dehydration, and hypotension. Obtain cyclosporine level. May need dialysis during this admission. (Brayden Trujillo MD) Problem Qualifiers (1) Intractable nausea and vomiting: Qualified Codes: R11.2 - Nausea with vomiting, unspecified Lissa Rojas May 31, 2017 11:40 Brayden Trujillo MD May 31, 2017 17:19
--- NOTE | 2017-05-31 12:19 | HHI.GIFU ---
Subjective Remarks Resting in bed. N/V, Abdominal pain has improved- not currently having. However, continues to have diarrhea- states too many episodes yesterday to count. 3 loose stools so far today. (Malena Hatch) Objective Vitals I&O Vital Signs Date Time Temp Pulse Resp B/P (MAP) Pulse Ox O2 Delivery O2 Flow Rate FiO2 05/31/17 07:30 97.2 111 20 159/73 (101) 97 05/31/17 01:24 98.7 106 18 140/71 (94) 97 05/31/17 00:04 101 05/30/17 20:00 98.6 102 18 135/72 (93) 98 05/30/17 20:00 108 05/30/17 16:00 101 05/30/17 16:00 98.1 105 16 123/67 (85) 100 05/30/17 13:00 101 I/O 05/30/17 05/30/17 05/30/17 05/31/17 05/31/17 05/31/17 07:00 15:00 23:00 07:00 15:00 23:00 Intake Total 2100 ml Balance 2100 ml Intake IV Total 2100 ml # Voids 1 1 # Bowel Movements 2 1 Laboratory Laboratory Tests Test 05/30/17 15:57 White Blood Count 11.2 Red Blood Count 4.12 Hemoglobin 12.2 Hematocrit 37.0 Mean Corpuscular Volume 89.9 Mean Corpuscular Hemoglobin 29.6 Mean Corpuscular Hemoglobin Concent 32.9 Red Cell Distribution Width 14.0 Platelet Count 173 Mean Platelet Volume 8.3 Neutrophils (%) (Auto) 81.9 Lymphocytes (%) (Auto) 5.1 Monocytes (%) (Auto) 10.7 Eosinophils (%) (Auto) 1.1 Basophils (%) (Auto) 1.2 Neutrophils # (Auto) 9.2 Lymphocytes # (Auto) 0.6 Monocytes # (Auto) 1.2 Eosinophils # (Auto) 0.1 Basophils # (Auto) 0.1 CBC Comment DIFF FINAL Differential Comment Hematology Comments Blood Urea Nitrogen 55 Creatinine 4.49 Random Glucose 113 Calcium Level 7.6 Sodium Level 145 Potassium Level 4.7 Chloride Level 116 Carbon Dioxide Level 17.2 Anion Gap 12 Estimat Glomerular Filtration Rate 13 Date/Time Source Procedure Growth Status 05/29/17 19:55 Blood Peripheral Aerobic Blood Culture - Preliminary NO GROWTH IN 2 DAYS Resulted 05/29/17 19:55 Blood Peripheral Anaerobic Blood Culture - Preliminary NO GROWTH IN 2 DAYS Resulted 05/29/17 21:08 Stool Stool Cryptosporidium Exam Pending Received 05/29/17 21:08 Stool Stool Giardia Antigen (DUDLEY) Pending Received Imaging Last Impressions Renal Ultrasound 05/30/17 0929 Signed Impressions: Service Date/Time: Tuesday, May 30, 2017 10:31 - CONCLUSION: 1. Echogenic kidneys bilaterally compatible with medical renal disease. Orlando Bethea MD Chest X-Ray 05/29/171815 Signed Impressions: Service Date/Time: Monday, May 29, 2017 18:29 - CONCLUSION: 1. Elevation of the right hemidiaphragm with suspected chronic pleural change along the right lateral chest. Prior exams are unavailable. 2. The lungs themselves appear grossly clear. 3. Calcified lymph nodes in the mediastinum. Bi Wells MD Physical Exam HEENT: Normocephalic; atraumatic; no jaundice. CHEST: CTA CARDIAC: RRR. ABDOMEN: Soft, nondistended, nontender; no hepatosplenomegaly; bowel sounds are present in all four quadrants. EXTREMITIES: No clubbing, cyanosis, or edema. SKIN: Normal; no rash; no jaundice. LEMON PICKER: No focal deficits; alert and oriented times three. (Malena Hatch [facility]) Assessment and Plan Plan ASSESSMENT - Nausea/Vomiting/Diarrhea, Epigastric pain. He states that his nausea/vomiting /abdominal pain has improved, but that he continues to have diarrhea- "too many episodes to count yesterday." 3 episodes today. He reports that he had a colonoscopy [facility] 2 months ago, unremarkable other than polyps. Stool studies, CDiff PCR negative. Enteric pathogens negative. Cryptosporidium, Giardia pending. Of note he is immunocompromised on Bactrim, cyclosporine, prednisone. No imaging on this hospitalization- will get oral contrasted ct scan. - Leukocytosis. WBC 11.2. - Worsening HARMAN. Creat 4.49 today (states baseline ~2). - Hx lung transplant, on immunosuppressive therapy. Transplant was 6 years ago at [facility]. PLAN - DMITRIY - CT Scan abdomen and pelvis with po contrast only - Add stool Cyclospora - Await crytosporidium, giardia - CBC, BMP in am - Cont. IVF - Flagyl - Supportive care - Consider flexible sigmoidoscopy if no improvement and stool studies negative, pending CT results - This pt seen by myself and Dr Pichardo and this note is written on his behalf (Malena Hatch) Physician Comments Agree with assessment and plan as above, will check CT results . (Nigel Pichardo MD) Malena Hatch May 31, 2017 12:19 Nigel Pichardo MD May 31, 2017 13:00
[2017-05-31 12:35] LABS: HEMATOCRIT 32.2 % (39.0-51.0); MEAN CELL VOLUME 89.9 FL (80.0-100.0); MEAN CORPUSCULAR HEMOGLOBIN 30.5 PG (27.0-34.0); PLATELET COUNT 178 TH/MM3 (150-450); RED BLOOD COUNT 3.58 MIL/MM3 (4.50-5.90); RED CELL DISTRIBUTION WIDTH 13.9 % (11.6-17.2); REVIEW FLAG FINAL; WHITE BLOOD COUNT 8.9 TH/MM3 (4.0-11.0)
[2017-05-31 12:48] LABS: BICARBONATE 21.6 MEQ/L (21.0-32.0); POTASSIUM 4.2 MEQ/L (3.5-5.1)
[2017-05-31] MEDS ORDERED: DIATRIZOATE MEGLUM/DIATRIZOATE SOD 9 ML CUP PO ONE (15:00)
[2017-05-31] MEDS: metroNIDAZOLE 500 MG INJ 100 ML IV SCH ×2 (16:01→20:55)
[2017-05-31] MEDS: PRAVASTATIN SOD 20 MG TAB PO SCH (20:57)
[2017-05-31 22:15] LABS: BLOOD, URINE NEG (NEG); GLUCOSE,URINE NEG (NEG); KETONE, URINE NEG (NEG); NITRITE,URINE NEG (NEG); SQUAMOUS EPITHELIAL CELL URINE <1 /hpf (0-5); URINE COLOR LIGHT-YELLOW (YELLW/STRAW)
[2017-05-31 22:20] LABS: COMMENT (UR) CULT NOT INDICATED; CULTURE IF INDICATED CULT NOT INDICATED
--- NOTE | 2017-05-31 23:29 | RADRPT ---
EXAM DATE/TIME: 05/31/2017 23:10 [facility] COMPARISON: No previous studies available for comparison. INDICATIONS : Bilateral upper quadrant pain with diarrhea. ORAL CONTRAST: Prescribed oral contrast ingested. RADIATION DOSE: 13.43 CTDIvol (mGy) MEDICAL HISTORY : Hypertension. Renal failure. SURGICAL HISTORY : Lung transplant. ENCOUNTER: Subsequent ACUITY: 3 days PAIN SCALE: 6/10 LOCATION: Bilateral upper quadrant TECHNIQUE: Volumetric scanning of the abdomen and pelvis was performed. Using automated exposure control and ad justment of the mA and/or kV according to patient size, radiation dose was kept as low as reasonably achievable to obtain optimal diagnostic quality images. DICOM format image data is available electro nically for review and comparison. FINDINGS: Small loculated right pleural effusion present and trace left pleural fluid. Moderate coronary calcif ications. There is a small amount free fluid around the liver and spleen with trace free fluid in the paracolic gutters and pelvis as well. No free air. There is some mild mural thickening of small bowel, predominantly at the terminal ileum. There is con trast throughout the colon without evidence for colitis. There are colonic diverticula without signif icant diverticulitis. No acute bony abnormalities are seen. No significant abnormality in the spleen, adrenals or pancreas. Kidneys are mildly atrophic. No calci fied gallstones or biliary ductal dilatation. CONCLUSION: 1. Questionable mild thickening of distal small bowel, most characteristic of a mild ileitis or enter itis. No definite colitis. 2. Colonic diverticulosis without diverticulitis. 3. Trace pleural fluid and trace free fluid in the abdomen. 4. Moderate coronary calcifications. 5. No obstruction or free air. Mannie Kuo MD on May 31, 2017 at 23:21 Board Certified Radiologist. This report was verified electronically.
[2017-05-31] MEDS ORDERED: DILTIAZEM HCL 25 MG/5 ML VIAL IV ONE (23:45)
[2017-06-01] VITALS (18 sets, daily range): BP systolic 121–158; BP diastolic 66–84; PULSE 56–115; RESP 18–20; TEMP 97–99.9; O2SAT 94–98
--- NOTE | 2017-06-01 00:28 | HHI.FPPN ---
Addendum to progress note ADDENDUM Reason for addendum: Additonal documentation Additional information [facility] went to [facility] of [facility]. Pt was found to be lying in bed and complaining of chest palpitations. [facility]; carotid massage, ice. EKG was being obtained. While EKG was being obtained the SVT resolved and the HR went down to 112 ( baseline for him). Symptoms resolved as well. VSS: Pulse Ox 100% on 2L BP: 144/90 HR: 112 after Diltiazem bolus PE: General: no acute distress, tremulous, facial flushing Cardiac: RRR pulm: LCTA, equal bilat abdomen: soft, non-tender Skin: capillary refill 2s, edema of R arm around IV, 2+ pitting edema in legs equal bilaterally 67 y/o M, hx of SVT and HARMAN on CKD, s/p lung transplant on immunosuppressive therapy, with recent volume overload, presents with symptomatic SVT. - Attempted vagal maneuvers and ice pack - CBC, BMP ordered - Cardizem 10mg IV x 1 given - SVT resolved after bolus - EKG: sinus tachycardia, no ST changes, rate 112 - transfer to [facility] for ability to get cardizem drip if necessary - CXR to assess for pulmonary edema Dr. David and present for exam. Sarah To MD R2 Jun 01, 2017 00:28
[2017-06-01] MEDS ORDERED: DILTIAZEM HCL 25 MG/5 ML VIAL IV ONE (00:45)
[2017-06-01 00:46] LABS: BASOPHIL % 0.4 % (0.0-2.0); EOSINOPHIL # 0.2 TH/MM3 (0-0.4); EOSINOPHIL % 2.4 % (0.0-4.0); HEMATOCRIT 32.5 % (39.0-51.0); HEMO FLAGS DIFF FINAL; LYMPH % 6.1 % (9.0-44.0); LYMPHOCYTE # 0.5 TH/MM3 (1.0-4.8); MEAN CELL VOLUME 89.9 FL (80.0-100.0); MEAN CORPUSCULAR HEMOGLOBIN 29.6 PG (27.0-34.0); MEAN CORPUSCULAR HGB CONC 32.9 % (32.0-36.0); MONO % 12.6 % (0.0-8.0); NEUT % 78.5 % (16.0-70.0); PLATELET COUNT 173 TH/MM3 (150-450); RED BLOOD COUNT 3.61 MIL/MM3 (4.50-5.90); RED CELL DISTRIBUTION WIDTH 13.8 % (11.6-17.2); WHITE BLOOD COUNT 8.9 TH/MM3 (4.0-11.0)
--- NOTE | 2017-06-01 00:46 | RADRPT ---
EXAM DATE/TIME: 06/01/2017 00:23 [facility] COMPARISON: CHEST SINGLE AP, May 29, 2017, 18:29. INDICATIONS : Tachycardia. MEDICAL HISTORY : Hypertension. Renal failure. SURGICAL HISTORY : Lung transplant. ENCOUNTER: Subsequent ACUITY: 1 day PAIN SCORE: 0/10 LOCATION: Bilateral chest FINDINGS: A single view of the chest demonstrates elevated right hemidiaphragm with right-sided small loculated effusion. Minimal basilar atelectasis. Heart size within normal limits. Multiple calcified mediastin al lymph nodes. CONCLUSION: 1. Elevated right hemidiaphragm with small loculated right effusion. Minimal basilar atelectasis. Mannie Kuo MD on June 01, 2017 at 0:42 Board Certified Radiologist. This report was verified electronically.
[2017-06-01 01:03] LABS: BICARBONATE 19.9 MEQ/L (21.0-32.0); POTASSIUM 3.9 MEQ/L (3.5-5.1)
--- NOTE | 2017-06-01 01:20 | RADRPT ---
EXAM DATE/TIME: 06/01/2017 00:48 [facility] COMPARISON: No previous studies available for comparison. INDICATIONS : Right arm swelling. MEDICAL HISTORY : Hypertension. Sarcoidosis. Chronic kidney disease. Pulmonary fibrosis. Skin cancer. SURGICAL HISTORY : Lung transplant. Skin cancer removal. ENCOUNTER: Initial ACUITY: 1 day PAIN SCORE: 4/10 LOCATION: Right arm. FINDINGS: Examination is positive for superficial thrombus in the cephalic vein mid to distal portion. No deep venous thrombosis in the internal jugular, subclavian, axillary and brachial vein. CONCLUSION: 1. Positive for superficial thrombus in the cephalic vein. No deep venous thrombosis. Mannie Kuo MD on June 01, 2017 at 1:14 Board Certified Radiologist. This report was verified electronically.
[2017-06-01] MEDS: ONDANSETRON HCL 4 MG/2 ML VIAL IV PUSH PRN (03:56)
[2017-06-01] MEDS: metroNIDAZOLE 500 MG INJ 100 ML IV SCH ×3 (05:00→21:06)
[2017-06-01] MEDS: HEPARIN SODIUM - SQ 10,000 UNITS/ML VIAL SQ SCH ×3 (05:05→21:08)
[2017-06-01] MEDS: PANTOPRAZOLE SOD 40 MG DELAYED RELEASE TAB PO SCH ×2 (05:27→16:00)
[2017-06-01 06:54] LABS: HEMATOCRIT 28.9 % (39.0-51.0); MEAN CELL VOLUME 88.9 FL (80.0-100.0); MEAN CORPUSCULAR HEMOGLOBIN 30.5 PG (27.0-34.0); MEAN CORPUSCULAR HGB CONC 34.3 % (32.0-36.0); PLATELET COUNT 159 TH/MM3 (150-450); RED BLOOD COUNT 3.25 MIL/MM3 (4.50-5.90); RED CELL DISTRIBUTION WIDTH 13.6 % (11.6-17.2); REVIEW FLAG FINAL; WHITE BLOOD COUNT 7.6 TH/MM3 (4.0-11.0)
[2017-06-01 07:00] LABS: BICARBONATE 19.2 MEQ/L (21.0-32.0); POTASSIUM 3.9 MEQ/L (3.5-5.1)
[2017-06-01] MEDS: cycloSPORINE 25 MG CAP PO SCH ×2 (09:00→21:00)
[2017-06-01] MEDS: NIACIN 500 MG EXTENDED RELEASE TAB PO SCH ×2 (09:00→18:20)
[2017-06-01] MEDS: predniSONE 1 MG TAB PO SCH (09:00)
[2017-06-01] MEDS: SODIUM CHLORIDE 0.9% FLUSH 10 ML FLUSH IV FLUSH SCH ×2 (09:00→21:07)
--- NOTE | 2017-06-01 09:41 | HHI.PR ---
Subjective Remarks Follow-up for diarrhea and acute on chronic renal failure Patient stated that he has better urine output. Continues to complain about diarrhea every 4 hours. Denied abdominal pain. He also stated that he feels nauseous again since last night. Patient that Zofran is not helping him. Patient had a rapid response last night due to SVTs. He stated that he had a similar episode happened before his lung transplant. At the moment he denies any chest pain, palpitation, shortness of breathing, lightheadedness dizziness. Dealt with patient's nurse Ann-Marie. Objective Vitals Vital Signs Date Time Temp Pulse Resp B/P (MAP) Pulse Ox O2 Delivery O2 Flow Rate FiO2 06/01/17 09:00 96 06/01/17 08:00 97.0 94 18 121/81 (94) 94 06/01/17 07:00 96 06/01/17 01:45 97.4 107 20 137/66 (89) 98 05/31/17 23:50 166 18 144/83 (103) 99 05/31/17 23:46 98 Nasal Cannula 2.00 05/31/17 23:45 170 18 138/86 (103) 96 05/31/17 23:35 99 2.00 05/31/17 20:07 93 05/31/17 20:00 97.8 104 18 157/85 (109) 98 05/31/17 15:50 98.4 102 20 146/71 (96) 97 05/31/17 11:50 97.7 101 20 146/74 (98) 97 I/O 05/31/17 05/31/17 05/31/17 06/01/17 06/01/17 06/01/17 07:00 15:00 23:00 07:00 15:00 23:00 Intake Total 281 ml 240 ml Output Total 125 ml 200 ml 700 ml Balance 156 ml -200 ml -460 ml Intake Oral 281 ml 240 ml Output Urine Total 125 ml 200 ml 700 ml # Voids 1 # Bowel Movements 1 3 1 Result Diagram: 06/01/1752406/01/17524 Objective Remarks GENERAL: in NAD CARDIOVASCULAR: Regular rate and rhythm without murmurs, gallops, or rubs. RESPIRATORY: Breath sounds equal bilaterally. No accessory muscle use. GASTROINTESTINAL: Abdomen soft, non-tender, nondistended. Medications and IVs Current Medications Ondansetron HCl (Zofran Inj) 4 mg ONCE ONCE IV PUSH Last administered on 18:30; Start 05/29/17 at 18:30; Stop 05/29/17 at 18:31; Status DC Pantoprazole Sodium (Protonix Inj) 40 mg ONCE ONCE IVP Last administered on 20:11; Start 05/29/17 at 19:30; Stop 05/29/17 at 19:32; Status DC Sodium Chloride 1,000 ml @ 1,000 mls/hr Q1H IV Last administered on 05/29/17 20:10; Start 05/29/17 at 19:22; Stop 05/29/17 at 20:21; Status DC Famotidine (Pepcid Inj) 20 mg ONCE ONCE IV PUSH Last administered on 20:10; Start 05/29/17 at 19:30; Stop 05/29/17 at 19:32; Status DC Metoclopramide HCl (Reglan Inj) 10 mg ONCE ONCE IV PUSH Last administered on 20:11; Start 05/29/17 at 19:30; Stop 05/29/17 at 19:32; Status DC Sodium Chloride 1,000 ml @ 1,000 mls/hr Q1H IV Last administered on 05/29/17 23:26; Start 05/29/17 at 21:24; Stop 05/29/17 at 22:23; Status DC Metronidazole 100 ml @ 100 mls/hr ONCE ONCE IV Last administered on 23:27; Start 05/29/17 at 22:00; Stop 05/29/17 at 22:59; Status DC Sodium Chloride (NS Flush) 2 ml UNSCH PRN IV FLUSH FLUSH AFTER USING IV ACCESS ; Start 05/29/17 at 22:15 Sodium Chloride (NS Flush) 2 ml BID IV FLUSH Last administered on 05/31/17 20: 57; Start 05/30/17 at 09:00 Naloxone HCl (Narcan Inj) 0.4 mg UNSCH PRN IV SEE LABEL COMMENTS; Start at 22:15 Ondansetron HCl (Zofran Inj) 4 mg Q6H PRN IV PUSH nausea Last administered on 03:56; Start 05/30/17 at 02:00 Sodium Chloride 1,000 ml @ 100 mls/hr Q10H IV Last administered on 05/30/17 04:22; Start 05/30/17 at 03:00; Stop 05/30/17 at 09:32; Status DC Cyclosporine (SandIMMUNE) 50 mg BID PO Last administered on 05/31/17 20:57; Start 05/30/17 at 09:00 Prednisone (Deltasone) 0.5 mg DAILY PO Last administered on 05/31/17 08:57; Start 05/30/17 at 09:00 Sirolimus (Rapamune) 0.5 mg DAILY@0600 PO ; Start 05/30/17 at 06:00; Stop at 09:11; Status DC Miscellaneous (Pill Splitter) 1 ea UNSCH PRN OTHER SEE LABEL COMMENTS; Start at 03:15 Trimethoprim/ Sulfamethoxazole (Bactrim 400-80 Mg) 1 tab MoTuSa@0900 PO Last administered on 05/30/17 13:40; Start 05/30/17 at 09:00 Acyclovir (Zovirax) 400 mg BID PO Last administered on 05/31/17 20:57; Start 05/30/17 at 09:00 Acetaminophen/ Hydrocodone Bitart (Lorenzo 7.5-325 Mg) 1 tab Q6H PRN PO PAIN 1- 10; Start 05/30/17 at 04:45 Pantoprazole Sodium (Protonix) 40 mg BIDAC PO Last administered on 06/01/17 05 :27; Start 05/30/17 at 07:00 Pravastatin Sodium (Pravachol) 20 mg BID PO Last administered on 05/30/17 14: 01; Start 05/30/17 at 09:00; Stop 05/30/17 at 18:53; Status DC Niacin (Slo-Niacin) 500 mg BID@0900,1800 PO Last administered on 05/31/17 18: 24; Start 05/30/17 at 09:00 Non-Formulary Medication SIROLIMUS 0.5 MG TABLET... DAILY@0600 PO ; Start at 06:00; Status Future Hold Sodium Chloride 38.5 meq/Sodium Bicarbonate 75 meq/Sterile Water 1,084.625 ml @ 50 mls/hr [id number] IV Last administered on 05/31/17 21:55; Start 05/30/17 at 10 :00 Sirolimus (Rapamune) 1 mg ONCE ONCE PO Last administered on 05/30/17 13:41; Start 05/30/17 at 11:00; Stop 05/30/17 at 11:01; Status DC Pravastatin Sodium (Pravachol) 20 mg HS PO Last administered on 05/31/17 20:57 ; Start 05/31/17 at 21:00 Metronidazole 100 ml @ 100 mls/hr Q8H IV Last administered on 05/31/17 20:55 ; Start 05/31/17 at 13:00 Diatrizoate Meglum/ Diatrizoate Sod ( Gastroview Liq) 18 ml ONCE ONCE PO Last administered on 05/31/17 16:01; Start 05/31/17 at 15:00; Stop 05/31/17 at 15:01; Status DC Diltiazem HCl (Cardizem Inj) 10 mg ONCE ONCE IV Last administered on 00:01; Start 05/31/17 at 23:45; Stop 05/31/17 at 23:52; Status DC Diltiazem HCl (Cardizem Inj) 10 mg ONCE ONCE IV Last administered on 00:49; Start 06/01/17 at 00:45; Stop 06/01/17 at 00:47; Status DC Heparin Sodium (Porcine) (Heparin Inj) 5,000 units Q8HR SQ ; Start 06/01/17 at 06:00 A/P Problem List: (1) Acute kidney injury superimposed on chronic kidney disease ICD Code: N17.9 - Acute kidney failure, unspecified; N18.9 - Chronic kidney disease, unspecified Status: Acute (2) Intractable nausea and vomiting ICD Code: R11.2 - Nausea with vomiting, unspecified Status: Acute (3) Leukocytosis ICD Code: D72.829 - Elevated white blood cell count, unspecified Status: Acute Assessment and Plan 67 y/o male with a 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 SVT on 06/01 -This is the second episode since his lung transplant. At the moment heart rates controlled on Cardizem drip. -Patient stated that he had a recent cardiac catheterization done 2 months ago and that he was told that he had a clean cath. -Continue Cardizem drip and will consult fundraising coordinator. Acute Kidney injury, superimposed on CKD, creatine on admission 3.2, baseline around 2.8-3, likely dehydration from nausea, vomiting and diarrhea -IVF for hydration -Avoid nephrotoxins as much as possible. Hold lisinopril. Bactrim would need to be continued due to transplant status -Community Affairs Manager consulted and started patient on IV bicarbonate. Continue management per film printer. -Kidney function worsened and has been stable. -Continue to avoid nephrotoxins and monitor creatinine. Leukocytosis, wbc on admission 15.9, resolved. Chest xray reviewed and shows elevation of the right hemidiaphragm with suspected chronic pleural change along the right lateral chest. Lungs appear clear, calcified lymph nodes in the mediastinum. -UA negative versus GI infection. Most likely viral. -Stool studies cultures negative. C. difficile was also negative. Diarrhea/emesis -More likely secondary to gastroenteritis. So far stool studies are negative. GI consulted stated continue to stool studies. -Patient continued to be symptomatic but so far workup has been negative. GI is following. Management per GI. Immunosuppressive therapy, history of lung transplant 6 years ago -continue medications - verified with [facility] nursing program coordinator -Per Xin Banuelos Transplant coordination can give sirolimus1 mg every other day until 0.5 mg tablets obtained. -Patient received an extra dose of sirolimus yesterday. Will restart sirolimus limits 0.5 mg tomorrow. DVT prophylaxis: heparin Discharge Planning Renal function is worsening patient needs continued hospitalization Problem Qualifiers (1) Intractable nausea and vomiting: Qualified Codes: R11.2 - Nausea with vomiting, unspecified (2) Leukocytosis: Qualified Codes: D72.825 - Bandemia Beatrice Clark MD Jun 01, 2017 09:41
[2017-06-01] MEDS ORDERED: PROMETHAZINE HCL 25 MG TAB PO PRN (09:45)
[2017-06-01] MEDS: ACYCLOVIR 200 MG CAP PO SCH ×2 (10:23→21:07)
--- NOTE | 2017-06-01 11:50 | HHI.PR ---
Objective Vitals Vital Signs Date Time Temp Pulse Resp B/P (MAP) Pulse Ox O2 Delivery O2 Flow Rate FiO2 06/01/17 11:00 99 06/01/17 10:00 99 06/01/17 09:00 96 06/01/17 08:00 97.0 94 18 121/81 (94) 94 06/01/17 07:00 96 06/01/17 01:45 97.4 107 20 137/66 (89) 98 05/31/17 23:50 166 18 144/83 (103) 99 05/31/17 23:46 98 Nasal Cannula 2.00 05/31/17 23:45 170 18 138/86 (103) 96 05/31/17 23:35 99 2.00 05/31/17 20:07 93 05/31/17 20:00 97.8 104 18 157/85 (109) 98 05/31/17 15:50 98.4 102 20 146/71 (96) 97 I/O 05/31/17 05/31/17 05/31/17 06/01/17 06/01/17 06/01/17 07:00 15:00 23:00 07:00 15:00 23:00 Intake Total 281 ml 240 ml Output Total 125 ml 200 ml 700 ml Balance 156 ml -200 ml -460 ml Intake Oral 281 ml 240 ml Output Urine Total 125 ml 200 ml 700 ml # Voids 1 # Bowel Movements 1 3 1 Result Diagram: 06/01/1725 06/01/17 05 Objective Remarks GENERAL: in NAD CARDIOVASCULAR: Regular rate and rhythm without murmurs, gallops, or rubs. RESPIRATORY: Breath sounds equal bilaterally. No accessory muscle use. GASTROINTESTINAL: Abdomen soft, non-tender, nondistended. 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 SVT on 06/01 -This is the second episode since his lung transplant. At the moment heart rates controlled on Cardizem drip. -Patient stated that he had a recent cardiac catheterization done 2 months ago and that he was told that he had a clean cath. -Continue Cardizem drip and will consult snow ranger. Acute Kidney injury, superimposed on CKD, creatine on admission 3.2, baseline around 2.8-3, likely dehydration from nausea, vomiting and diarrhea -IVF for hydration -Avoid nephrotoxins as much as possible. Hold lisinopril. Bactrim would need to be continued due to transplant status -[employer] consulted and started patient on IV bicarbonate. Continue management per flight director. -Kidney function worsened and has been stable. -Continue to avoid nephrotoxins and monitor creatinine. Leukocytosis, wbc on admission 15.9, resolved. Chest xray reviewed and shows elevation of the right hemidiaphragm with suspected chronic pleural change along the right lateral chest. Lungs appear clear, calcified lymph nodes in the mediastinum. -UA negative versus GI infection. Most likely viral. -Stool studies cultures negative. C. difficile was also negative. Diarrhea/emesis -More likely secondary to gastroenteritis. So far stool studies are negative. GI consulted stated continue to stool studies. -Patient continued to be symptomatic but so far workup has been negative. GI is following. Management per GI. Immunosuppressive therapy, history of lung transplant 6 years ago -continue medications - verified with [facility] medical staff credentialing coordinator -Per Xin Banuelos Transplant coordination can give sirolimus1 mg every other day until 0.5 mg tablets obtained. -Patient received an extra dose of sirolimus yesterday. Will restart sirolimus limits 0.5 mg tomorrow. DVT prophylaxis: heparin Discharge Planning Renal function is worsening patient needs continued hospitalization Problem Qualifiers (1) Intractable nausea and vomiting: Qualified Codes: R11.2 - Nausea with vomiting, unspecified (2) Leukocytosis: Qualified Codes: D72.825 - Bandemia Beatrice Clark MD Jun 01, 2017 11:50
--- NOTE | 2017-06-01 13:16 | MB ---
cc: MARVIN TRAN DATE OF CONSULTATION 06/01/2017 INDICATION SVT. Cardiac clearance. HISTORY OF PRESENT ILLNESS This is a 67-year-old gentleman with history of lung transplant on immunosuppression, known chronic kidney disease, pulmonary fibrosis. He presented with nausea, vomiting, diarrhea, epigastric pain. The patient is currently on the transplant list at [facility] for kidney. He has obvious baseline renal dysfunction and now prerenal azotemia, possible ATN. Apparently last night he developed SVT at 160 beats per minute. The patient states he had one similar episode prior to his lung transplant. Denies any chest pain or shortness of breath. He had a cardiac catheterization a few months ago which was reportedly normal. We are consulted for further recommendations. PAST MEDICAL HISTORY 1. Hypertension. 2. Chronic kidney disease. 3. Sarcoidosis. 4. Atrial fibrillation nd prior to his lung transplant. 5. History of lung transplantation. 6. Multiple skin cancers. HOME MEDICATIONS 1. Acyclovir. 2. Calcitriol. 3. [place]. 4. Lisinopril 5. Metoprolol. 6. Niacin. 7. Zofran. 8. Protonix. 9. Pravastatin. 10. Bactrim. ALLERGIES No known drug allergies. REVIEW OF SYSTEMS A 12-point review of systems was performed, negative unless otherwise noted in the History of Present Illness. FAMILY HISTORY Denies any family history of early coronary artery disease or sudden cardiac . SOCIAL HISTORY Denies alcohol, tobacco or drug use. PHYSICAL EXAMINATION VITAL SIGNS: Temperature is 97, heart rate is 99, blood pressure 121/81 mmHg. GENERAL: Alert and oriented x 3, in no acute distress. HEENT: Exam shows pupils reactive to light and accommodation. Extraocular motions are intact. NECK: No elevation in jugular venous distension. No thyromegaly, no lymphadenopathy, no carotid bruits. LUNGS: Clear to auscultation bilaterally. CARDIOVASCULAR EXAM: Regular rate and rhythm without murmurs, rubs or gallops. ABDOMINAL EXAM. Nontender, nondistended. Good bowel sounds. No hepatosplenomegaly. EXTREMITIES: No clubbing, cyanosis or edema. Good peripheral pulses. NEUROLOGIC: Cranial nerves intact. Motor and sensory grossly intact. LABORATORY DATA WBC 7.6, hemoglobin 9.9, platelet count 159. INR is 1. Sodium 141, potassium 3.9, BUN is 46, creatinine is 4.58. TELEMETRY Reviewed, shows sinus tachycardia and some strips with artifact. ASSESSMENT 1. Possible SVT. 2. Chronic kidney disease. 3. Nausea, vomiting. PLAN The patient does not have a history of known heart disease. He has had a workup which has consisted of cardiac catheterization, likely echocardiogram. We can see if we can try to obtain outpatient records. I do not think he needs repeat of the echocardiogram. He has no congestive heart failure or significant valvular heart disease by physical exam. I have reviewed his telemetry. There is quite a bit of baseline artifact some of which may have been misinterpreted by the telemetry algorithm as increased heart rate response. I do not actually see any evidence of atrial fibrillation or flutter. I would at this point just recommend continuation of the beta-goldy that he had been on at home. Blood pressure will tolerate. If there is any further arrhythmias, feel free to give us a call back. This would not have any impact on his candidacy for consideration of kidney transplant. He would be cleared from a cardiac perspective if he had a normal cardiac catheterization a few months ago. Marvin Tran MD SM/SSB /11:11 AM /1:00 PM
--- NOTE | 2017-06-01 13:35 | HHI.NPPN ---
Subjective Renal Failure: Chronic, Acute, Stage IV Interval History He went into SVT overnight, transferred to [facility]. Heart rate improved. Creatinine is slightly better. Urine output improved. (Lissa Rojas) Review of Systems General Constitutional: Fatigue (Lissa Rojas) Objective Data Data Vital Signs Date Time Temp Pulse Resp B/P (MAP) Pulse Ox O2 Delivery O2 Flow Rate FiO2 06/01/17 12:00 115 06/01/17 11:00 99 06/01/17 10:00 99 06/01/17 09:00 96 06/01/17 08:00 97.0 94 18 121/81 (94) 94 06/01/17 07:00 96 06/01/17 01:45 97.4 107 20 137/66 (89) 98 05/31/17 23:50 166 18 144/83 (103) 99 05/31/17 23:46 98 Nasal Cannula 2.00 05/31/17 23:45 170 18 138/86 (103) 96 05/31/17 23:35 99 2.00 05/31/17 20:07 93 05/31/17 20:00 97.8 104 18 157/85 (109) 98 05/31/17 15:50 98.4 102 20 146/71 (96) 97 (Lissa Rojas) -: 06/01/17 0525 06/01/17 0525 Imaging Last 72 hours Impressions Upper Extremity Ultrasound 06/01/17 0000 Signed Impressions: Service Date/Time: May 00:48 - CONCLUSION: 1. Positive for superficial thrombus in the cephalic vein. No deep venous thrombosis. Mannie Kuo MD Chest X-Ray 06/01/17 0000 Signed Impressions: Service Date/Time: May 00:23 - CONCLUSION: 1. Elevated right hemidiaphragm with small loculated right effusion. Minimal basilar atelectasis. Mannie Kuo MD Abdomen/Pelvis CT 05/31/17 0000 Signed Impressions: Service Date/Time: Wednesday, May 31, 2017 23:10 - CONCLUSION: 1. Questionable mild thickening of distal small bowel, most characteristic of a mild ileitis or enteritis. No definite colitis. 2. Colonic diverticulosis without diverticulitis. 3. Trace pleural fluid and trace free fluid in the abdomen. 4. Moderate coronary calcifications. 5. No obstruction or free air. Mannie Kuo MD Renal Ultrasound 05/30/17 0929 Signed Impressions: Service Date/Time: Tuesday, May 30, 2017 10:31 - CONCLUSION: 1. Echogenic kidneys bilaterally compatible with medical renal disease. Orlando Bethea MD Chest X-Ray 05/29/17 1816 Signed Impressions: Service Date/Time: Monday, May 29, 2017 18:29 - CONCLUSION: 1. Elevation of the right hemidiaphragm with suspected chronic pleural change along the right lateral chest. Prior exams are unavailable. 2. The lungs themselves appear grossly clear. 3. Calcified lymph nodes in the mediastinum. Bi Wells MD (Lissa Rojas) Physical Exam General Appearance: Well Developed, Well Nourished, No Acute Distress, Comfortable (Lissa Rojas) Throat Throat Exam: Oral Mucosa [place] & Moist (Lissa Rojas) Pulmonary Resp Exam: Clear Bilaterally, Breath Sounds Equal, No Distress (Lissa Rojas) Cardiology CV Exam: Regular, Normal Sinus Rhythm, Good Perfusion (Lissa Rojas) Gastrointestinal/Abdomen GI Exam: Soft, Non-Tender, Bowel Sounds Present (Lissa Rojas) Musculoskeletal MS Exam: Joints Intact, Normal Tone, Good Strength (Lissa Rojas) Integumentary Skin Exam: Warm, Dry Skin Remarks right face bandaged (Lissa Rojas) Extremeties Extremities Exam: No Edema, Pedal Pulses Palpable (Lissa Rojas) Neurologic Neuro Exam: Alert, Awake, Oriented, Speech Clear, Moving All Extremities (Lissa Rojas) Psychiatric Psych Exam: Appropriate Responses (Lissa Rojas) Assessment/Plan Discussed Condition With: Patient Assessment Summary: HARMAN/Acute Renal Failure, CKD Stage IV Electrolyte Assessment: Metabolic Acidosis Problem List: (1) Acute kidney injury superimposed on chronic kidney disease ICD Codes: N17.9 - Acute kidney failure, unspecified; N18.9 - Chronic kidney disease, unspecified Status: Acute Plan: Baseline CKD stage 4 and is on waiting list for renal transplant at [facility] 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, baseline creatinine 2.8-3 HARMAN from prerenal azotemia from vomiting and diarrhea, also hypotension, may have suffered hypoperfusion injury which could have progressed to ATN his urine output has increased creatinine beginning to trend down UA is negative for infection or protein at this time continue bicarb drip avoid nephrotoxins renal panel in AM dialysis is not necessary at this time of note he is on Bactrim three times weekly, which needs to be continued at this time (2) Intractable nausea and vomiting ICD Codes: R11.2 - Nausea with vomiting, unspecified Status: Acute Plan: also with diarrhea, which has improved stool studies negative so far continue antiemetics and IVF CT reviewed GI following (3) S/P lung transplant ICD Codes: Z94.2 - Lung transplant status Plan: continue immunosuppression as ordered he should be on Sirolimus 0.5 mg po daily also tacrolimus 50 mg po BID tacrolimus level is acceptable (4) Tachycardia ICD Codes: R00.0 - Tachycardia, unspecified Plan: now in NSR cardiology has evaluated, tele strip had artifact and may not have been true SVT no further intervention continue metoprolol for rate control (Lissa Rojas) Plan patient was seen and examined. Agree with above assessment and plan. Creatinine is better. Continue to monitor. Cyclosporine level is acceptable. (Brayden Trujillo MD) Problem Qualifiers (1) Intractable nausea and vomiting: Qualified Codes: R11.2 - Nausea with vomiting, unspecified Lissa Rojas Jun 01, 2017 13:35 Brayden Trujillo MD Jun 01, 2017 16:15
--- NOTE | 2017-06-01 17:54 | EKG ---
Date Performed: 05/31/2017 Time Performed: 23:50:44 PTAGE: 67 years EKG: SINUS TACHYCARDIA INCOMPLETE RIGHT BUNDLE BRANCH BLOCK NONSPECIFIC ST & T-WAVE ABNORMALITY ABNORMAL RHYTHM ECG PREVIOUS TRACING 05/29/17 @ 19.27.30 Compared to prior tracing no significant change DOCTOR: Donnell Pineda Interpretating Date/Time 06/01/2017 17:52:59
[2017-06-01] MEDS: PRAVASTATIN SOD 20 MG TAB PO SCH (21:07)
[2017-06-01] MEDS: METOPROLOL TARTRATE 25 MG TAB PO SCH (21:08)
[2017-06-02] VITALS (22 sets, daily range): BP systolic 121–142; BP diastolic 70–88; PULSE 51–98; RESP 16–20; TEMP 97.3–99.3; O2SAT 95–97
[2017-06-02] MEDS: ONDANSETRON HCL 4 MG/2 ML VIAL IV PUSH PRN (01:22)
[2017-06-02] MEDS: PANTOPRAZOLE SOD 40 MG DELAYED RELEASE TAB PO SCH ×2 (05:45→16:00)
[2017-06-02] MEDS: metroNIDAZOLE 500 MG INJ 100 ML IV SCH ×2 (05:45→13:00)
[2017-06-02] MEDS: HEPARIN SODIUM - SQ 10,000 UNITS/ML VIAL SQ SCH ×3 (05:45→20:54)
[2017-06-02] MEDS: SIROLIMUS 0.5 MG PO SCH (06:00)
[2017-06-02 06:27] LABS: HEMATOCRIT 29.5 % (39.0-51.0); MEAN CELL VOLUME 89.6 FL (80.0-100.0); MEAN CORPUSCULAR HEMOGLOBIN 29.8 PG (27.0-34.0); MEAN CORPUSCULAR HGB CONC 33.3 % (32.0-36.0); PLATELET COUNT 172 TH/MM3 (150-450); RED CELL DISTRIBUTION WIDTH 13.4 % (11.6-17.2); REVIEW FLAG FINAL
[2017-06-02 06:46] LABS: BICARBONATE 19.9 MEQ/L (21.0-32.0)
[2017-06-02] MEDS: cycloSPORINE 25 MG CAP PO SCH ×2 (09:00→20:54)
[2017-06-02] MEDS: SODIUM CHLORIDE 23.4% INJ 38.5 MEQ, SODIUM BICARBONATE 8.4% INJ 75 MEQ in WATER STERILE... IV SCH (09:08)
[2017-06-02] MEDS: METOPROLOL TARTRATE 25 MG TAB PO SCH ×2 (09:30→20:54)
[2017-06-02] MEDS: ACYCLOVIR 200 MG CAP PO SCH ×2 (09:30→20:54)
[2017-06-02] MEDS: predniSONE 1 MG TAB PO SCH (09:30)
[2017-06-02] MEDS: NIACIN 500 MG EXTENDED RELEASE TAB PO SCH ×2 (09:34→18:29)
[2017-06-02] MEDS: SODIUM CHLORIDE 0.9% FLUSH 10 ML FLUSH IV FLUSH SCH ×2 (09:34→20:53)
--- NOTE | 2017-06-02 10:31 | HHI.PR ---
Subjective Remarks Pt thinks he has a low grade temp. states it was 98 this morning but he usually runs low and this temp is high for him. he denies any chills, denies any chest pains, SOB, admits to mild nausea but no vomiting. Since midnight he has had 3 loose stools. Pt eager to get discharged Objective Vitals Vital Signs Date Time Temp Pulse Resp B/P (MAP) Pulse Ox O2 Delivery O2 Flow Rate FiO2 06/02/17 09:00 90 06/02/17 08:00 74 06/02/17 07:00 99.3 92 16 140/76 (97) 97 06/02/17 07:00 94 06/02/17 06:00 98 06/02/17 05:00 97 06/02/17 04:00 92 06/02/17 03:00 88 06/02/17 03:00 98.8 89 18 138/77 (97) 95 06/02/17 02:00 90 06/02/17 01:00 87 06/02/17 00:00 88 06/01/17 23:00 99.9 86 18 144/78 (100) 95 06/01/17 23:00 78 06/01/17 22:00 80 06/01/17 21:00 104 06/01/17 20:00 102 06/01/17 19:32 97.7 101 18 158/84 (108) 95 06/01/17 19:00 97 06/01/17 18:00 56 06/01/17 17:00 109 06/01/17 16:00 97.3 66 135/74 (94) 06/01/17 16:00 93 06/01/17 15:19 97 06/01/17 14:00 101 06/01/17 12:00 115 06/01/17 11:00 99 I/O 06/01/17 06/01/17 06/01/17 06/02/17 06/02/17 06/02/17 07:00 15:00 23:00 07:00 15:00 23:00 Intake Total 240 ml 300 ml 720 ml Output Total 700 ml 650 ml Balance -460 ml -350 ml 720 ml Intake Oral 240 ml 300 ml 720 ml Output Urine Total 700 ml 650 ml # Voids 2 # Bowel Movements 1 2 Result Diagram: 06/02/17 0515 06/02/17 0515 Imaging Last Impressions Upper Extremity Ultrasound 06/01/17 0000 Signed Impressions: Service Date/Time: May 00:48 - CONCLUSION: 1. Positive for superficial thrombus in the cephalic vein. No deep venous thrombosis. Mannie Kuo MD Chest X-Ray 06/01/17 0000 Signed Impressions: Service Date/Time: May 00:23 - CONCLUSION: 1. Elevated right hemidiaphragm with small loculated right effusion. Minimal basilar atelectasis. Mannie Kuo MD Abdomen/Pelvis CT 05/31/17 0000 Signed Impressions: Service Date/Time: Wednesday, May 31, 2017 23:10 - CONCLUSION: 1. Questionable mild thickening of distal small bowel, most characteristic of a mild ileitis or enteritis. No definite colitis. 2. Colonic diverticulosis without diverticulitis. 3. Trace pleural fluid and trace free fluid in the abdomen. 4. Moderate coronary calcifications. 5. No obstruction or free air. Mannie Kuo MD Renal Ultrasound 05/30/17 0929 Signed Impressions: Service Date/Time: Tuesday, May 30, 2017 10:31 - CONCLUSION: 1. Echogenic kidneys bilaterally compatible with medical renal disease. Orlando Bethea MD Objective Remarks GENERAL: laying in bed CARDIOVASCULAR: Regular rate and rhythm without murmurs RESPIRATORY: Breath sounds equal bilaterally. No accessory muscle use. GASTROINTESTINAL: Abdomen soft, non-tender, nondistended. EXT: moves all extremities. 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 SVT on 06/01 -This is the second episode since his lung transplant. At the moment heart rates controlled on metoprolol -Patient stated that he had a recent cardiac catheterization done 2 months ago and that he was told that he had a clean cath. -Oral Therapist, Dr. Barroso evaluated the patient. At this time continue metoprolol 25mg BID and no intervention needed. Acute Kidney injury, superimposed on CKD, creatine on admission 3.2, baseline around 2.8-3, likely dehydration from nausea, vomiting and diarrhea -continue IVF for hydration. Cr improved to 3.89 today -Avoid nephrotoxins as much as possible. Hold lisinopril. Bactrim would need to be continued due to transplant status -Tie Tape Machine Operator following and recommends IV bicarbonate gtt. Continue management per shingles roofer helper. Leukocytosis, wbc on admission 15.9, resolved. Chest xray reviewed and shows elevation of the right hemidiaphragm with suspected chronic pleural change along the right lateral chest. Lungs appear clear, calcified lymph nodes in the mediastinum. -UA negative versus GI infection. Most likely viral. -Stool studies cultures negative. C. difficile was also negative. GI following. Diarrhea/emesis -More likely secondary to gastroenteritis. So far stool studies are negative. GI following. CT abdomen showed ?mild thickening distal small bowel, mild ileitis or enteritis w no definite colitis. -Patient continued to be symptomatic but so far workup has been negative. GI is following. Management per GI. will touch base w GI. Immunosuppressive therapy, history of lung transplant 6 years ago -continue medications - verified with [employer] environmental coordinator -Per Xin Banuelos Transplant coordination can give sirolimus1 mg every other day until 0.5 mg tablets obtained. -Patient received an extra dose of sirolimus 2 days ago. Restart sirolimus limits 0.5 mg today. DVT prophylaxis: heparin Discharge Planning Pt still on bicarb gtt. Awaiting final recs from GI and nephrology Pt would like to be discharged soon apparently he has an appt w Zev on monday Problem Qualifiers (1) Intractable nausea and vomiting: Qualified Codes: R11.2 - Nausea with vomiting, unspecified (2) Leukocytosis: Qualified Codes: D72.825 - Bandemia Leah Vincent MD Jun 02, 2017 10:31
--- NOTE | 2017-06-02 12:17 | HHI.NPPN ---
Subjective Renal Failure: Chronic, Acute, Stage IV Interval History Renal function improving. He is not wanting to have IVF infused. Still with diarrhea. (Lissa Rojas) Review of Systems General Constitutional: Fatigue (Lissa Rojas) Gastrointestinal Gastrointestinal: Diarrhea (Lissa Rojas) Objective Data Data Vital Signs Date Time Temp Pulse Resp B/P (MAP) Pulse Ox O2 Delivery O2 Flow Rate FiO2 06/02/17 10:00 76 06/02/17 09:00 90 06/02/17 08:00 74 06/02/17 07:00 99.3 92 16 140/76 (97) 97 06/02/17 07:00 94 06/02/17 06:00 98 06/02/17 05:00 97 06/02/17 04:00 92 06/02/17 03:00 88 06/02/17 03:00 98.8 89 18 138/77 (97) 95 06/02/17 02:00 90 06/02/17 01:00 87 06/02/17 00:00 88 06/01/17 23:00 99.9 86 18 144/78 (100) 95 06/01/17 23:00 78 06/01/17 22:00 80 06/01/17 21:00 104 06/01/17 20:00 102 06/01/17 19:32 97.7 101 18 158/84 (108) 95 06/01/17 19:00 97 06/01/17 18:00 56 06/01/17 17:00 109 06/01/17 16:00 97.3 66 135/74 (94) 06/01/17 16:00 93 06/01/17 15:19 97 06/01/17 14:00 101 (Lissa Rojas) -: 06/02/17 0515 06/02/17 0515 Imaging Last 72 hours Impressions Upper Extremity Ultrasound 06/01/17 0000 Signed Impressions: Service Date/Time: May 00:48 - CONCLUSION: 1. Positive for superficial thrombus in the cephalic vein. No deep venous thrombosis. Mannie Kuo MD Chest X-Ray 06/01/17 0000 Signed Impressions: Service Date/Time: May 00:23 - CONCLUSION: 1. Elevated right hemidiaphragm with small loculated right effusion. Minimal basilar atelectasis. Mannie Kuo MD Abdomen/Pelvis CT 05/31/17 0000 Signed Impressions: Service Date/Time: Wednesday, May 31, 2017 23:10 - CONCLUSION: 1. Questionable mild thickening of distal small bowel, most characteristic of a mild ileitis or enteritis. No definite colitis. 2. Colonic diverticulosis without diverticulitis. 3. Trace pleural fluid and trace free fluid in the abdomen. 4. Moderate coronary calcifications. 5. No obstruction or free air. Mannie Kuo MD (Lissa Rojas B. STERILE PROCESSING TECHNOLOGIST) Physical Exam General Appearance: Well Developed, Well Nourished, No Acute Distress, Comfortable (Lissa Rojas B. STERILE PROCESSING TECHNOLOGIST) Throat Throat Exam: Oral Mucosa [place] & Moist (Willam Rojason B. STERILE PROCESSING TECHNOLOGIST) Pulmonary Resp Exam: Clear Bilaterally, Breath Sounds Equal, No Distress (Lissa Rojas B. STERILE PROCESSING TECHNOLOGIST) Cardiology CV Exam: Regular, Normal Sinus Rhythm, Good Perfusion (Lissa Rojas B. STERILE PROCESSING TECHNOLOGIST) Gastrointestinal/Abdomen GI Exam: Soft, Non-Tender, Bowel Sounds Present (Lissa Rojas B. STERILE PROCESSING TECHNOLOGIST) Musculoskeletal MS Exam: Joints Intact, Normal Tone, Good Strength (Lissa Rojas B. STERILE PROCESSING TECHNOLOGIST) Integumentary Skin Exam: Warm, Dry Skin Remarks right face bandaged (Willam Rojason B. STERILE PROCESSING TECHNOLOGIST) Extremeties Extremities Exam: No Edema, Pedal Pulses Palpable (Willam Rojason B. STERILE PROCESSING TECHNOLOGIST) Neurologic Neuro Exam: Alert, Awake, Oriented, Speech Clear, Moving All Extremities (CrystalLissa B. STERILE PROCESSING TECHNOLOGIST) Psychiatric Psych Exam: Appropriate Responses (CrystalLissa B. STERILE PROCESSING TECHNOLOGIST) Assessment/Plan Discussed Condition With: Patient Assessment Summary: HARMAN/Acute Renal Failure, CKD Stage IV Electrolyte Assessment: Metabolic Acidosis Problem List: (1) Acute kidney injury superimposed on chronic kidney disease ICD Codes: N17.9 - Acute kidney failure, unspecified; N18.9 - Chronic kidney disease, unspecified Status: Acute Plan: Baseline CKD stage 4 and is on waiting list for renal transplant at [facility] 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, baseline creatinine 2.8-3 HARMAN from prerenal azotemia from vomiting and diarrhea, also hypotension, may have suffered hypoperfusion injury which could have progressed to ATN renal function improving, he is non oliguric ordered bicarb drip but he does not want to be connected to IVF avoid nephrotoxins renal panel in AM dialysis is not necessary at this time of note he is on Bactrim three times weekly, which needs to be continued at this time I have asked the nurse to forward his renal function panel to his country sales manager at [facility] for review. His case is to be presented to transplant panel for review Monday. He will see her shortly after discharge. (2) Intractable nausea and vomiting ICD Codes: R11.2 - Nausea with vomiting, unspecified Status: Acute Plan: also with diarrhea stool studies negative so far continue antiemetics and IVF GI following , may need flexible sigmoidoscopy (3) S/P lung transplant ICD Codes: Z94.2 - Lung transplant status Plan: continue immunosuppression as ordered he should be on Sirolimus 0.5 mg po daily also tacrolimus 50 mg po BID tacrolimus level is acceptable (4) Tachycardia ICD Codes: R00.0 - Tachycardia, unspecified Plan: now in NSR cardiology has evaluated, tele strip had artifact and may not have been true SVT no further intervention continue metoprolol for rate control (Lissa Rojas) Plan patient was seen and examined. Agree with above assessment and plan. He can be discharged from renal standpoint. He is being followed at [facility] by a country sales manager. (Brayden Trujillo MD) Problem Qualifiers (1) Intractable nausea and vomiting: Qualified Codes: R11.2 - Nausea with vomiting, unspecified Lissa Rojas Jun 02, 2017 12:17 Brayden Trujillo MD Jun 02, 2017 15:24
--- NOTE | 2017-06-02 15:27 | HHI.GIFU ---
Subjective Remarks Pt having watery stools, not urgent, non bloody. He is nauseated. 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 He is being assessed for kidney transplant. He is on Septra for his lungs and on flagyl for his diarrhea. Objective Vitals I&O Vital Signs Date Time Temp Pulse Resp B/P (MAP) Pulse Ox O2 Delivery O2 Flow Rate FiO2 06/02/17 15:00 86 06/02/17 14:00 82 06/02/17 13:00 77 06/02/17 11:00 97.3 73 18 121/78 (92) 96 06/02/17 11:00 78 06/02/17 10:00 76 06/02/17 09:00 90 06/02/17 08:00 74 06/02/17 07:00 99.3 92 16 140/76 (97) 97 06/02/17 07:00 94 06/02/17 06:00 98 06/02/17 05:00 97 06/02/17 04:00 92 06/02/17 03:00 88 06/02/17 03:00 98.8 89 18 138/77 (97) 95 06/02/17 02:00 90 06/02/17 01:00 87 06/02/17 00:00 88 06/01/17 23:00 99.9 86 18 144/78 (100) 95 06/01/17 23:00 78 06/01/17 22:00 80 06/01/17 21:00 104 06/01/17 20:00 102 06/01/17 19:32 97.7 101 18 158/84 (108) 95 06/01/17 19:00 97 06/01/17 18:00 56 06/01/17 17:00 109 06/01/17 16:00 97.3 66 135/74 (94) 06/01/17 16:00 93 I/O 06/01/17 06/01/17 06/01/17 06/02/17 06/02/17 06/02/17 07:00 15:00 23:00 07:00 15:00 23:00 Intake Total 240 ml 300 ml 720 ml Output Total 700 ml 650 ml Balance -460 ml -350 ml 720 ml Intake Oral 240 ml 300 ml 720 ml Output Urine Total 700 ml 650 ml # Voids 2 # Bowel Movements 1 2 Laboratory Laboratory Tests Test 06/02/17 05:15 White Blood Count 7.0 Red Blood Count 3.30 Hemoglobin 9.8 Hematocrit 29.5 Mean Corpuscular Volume 89.6 Mean Corpuscular Hemoglobin 29.8 Mean Corpuscular Hemoglobin Concent 33.3 Red Cell Distribution Width 13.4 Platelet Count 172 Mean Platelet Volume 7.2 Blood Urea Nitrogen 36 Creatinine 3.89 Random Glucose 89 Calcium Level 8.1 Sodium Level 140 Potassium Level 4.0 Chloride Level 109 Carbon Dioxide Level 19.9 Anion Gap 11 Estimat Glomerular Filtration Rate 15 Date/Time Source Procedure Growth Status 05/29/17 19:55 Blood Peripheral Aerobic Blood Culture - Preliminary NO GROWTH IN 4 DAYS Resulted 05/29/17 19:55 Blood Peripheral Anaerobic Blood Culture - Preliminary NO GROWTH IN 4 DAYS Resulted 05/29/17 21:08 Stool Stool Cyclospora Exam - Final NO CYCLOSPORA SEEN Complete Physical Exam HEENT: Normocephalic; atraumatic; no jaundice. CHEST: CTA CARDIAC: RRR. ABDOMEN: Soft, nondistended, nontender; no hepatosplenomegaly; bowel sounds are present in all four quadrants. EXTREMITIES: No clubbing, cyanosis, or edema. SKIN: Normal; no rash; no jaundice. WOMENS HEALTH NURSE PRACTITIONER: No focal deficits; alert and oriented times three. Assessment and Plan Plan ASSESSMENT - Nausea/Vomiting/Diarrhea, Epigastric pain. He states that his nausea/vomiting /abdominal pain has improved, but that he continues to have diarrhea- "too many episodes to count yesterday." 3 episodes today. He reports that he had a colonoscopy [facility] 2 months ago, unremarkable other than polyps. Stool studies, CDiff PCR negative. Enteric pathogens negative. Cryptosporidium, Giardia pending. Of note he is immunocompromised on Bactrim, cyclosporine, prednisone. No imaging on this hospitalization- will get oral contrasted ct scan. - Leukocytosis. WBC 11.2. - Worsening HARMAN. Creat 4.49 today (states baseline ~2). - Hx lung transplant, on immunosuppressive therapy. Transplant was 6 years ago at [facility]. - now having some nausea possibly due to flagyl. No infective diarrhea. PLAN - DMITRIY - CT Scan abdomen and pelvis with po contrast only - Add stool Cyclospora - Await crytosporidium, giardia - CBC, BMP in am - Cont. IVF - D/C Flagyl - Supportive care - Consider flexible sigmoidoscopy if no improvement and stool studies negative, pending CT results - This pt seen by myself and Dr Pichardo and this note is written on his behalf Chucho Conrad MD Jun 02, 2017 15:27
[2017-06-02] MEDS ORDERED: LOPERAMIDE HCL 2 MG CAP PO PRN (16:30)
[2017-06-02] MEDS: PRAVASTATIN SOD 20 MG TAB PO SCH (20:54)
[2017-06-03] VITALS (12 sets, daily range): BP systolic 137–156; BP diastolic 76–93; PULSE 76–94; RESP 18; TEMP 98.3–98.7; O2SAT 95–98
[2017-06-03] MEDS: SIROLIMUS 0.5 MG PO SCH (05:45)
[2017-06-03] MEDS: PANTOPRAZOLE SOD 40 MG DELAYED RELEASE TAB PO SCH (05:46)
[2017-06-03] MEDS: HEPARIN SODIUM - SQ 10,000 UNITS/ML VIAL SQ SCH (05:46)
[2017-06-03] MEDS: SODIUM CHLORIDE 23.4% INJ 38.5 MEQ, SODIUM BICARBONATE 8.4% INJ 75 MEQ in WATER STERILE... IV SCH (05:46)
[2017-06-03 06:08] LABS: BICARBONATE 23.8 MEQ/L (21.0-32.0); POTASSIUM 3.9 MEQ/L (3.5-5.1)
[2017-06-03] MEDS: cycloSPORINE 25 MG CAP PO SCH (08:02)
[2017-06-03] MEDS: METOPROLOL TARTRATE 25 MG TAB PO SCH (08:02)
[2017-06-03] MEDS: predniSONE 1 MG TAB PO SCH (08:02)
[2017-06-03] MEDS: ACYCLOVIR 200 MG CAP PO SCH (08:03)
[2017-06-03] MEDS: NIACIN 500 MG EXTENDED RELEASE TAB PO SCH (08:12)
[2017-06-03] MEDS: SODIUM CHLORIDE 0.9% FLUSH 10 ML FLUSH IV FLUSH SCH (08:12)
[2017-06-03] MEDS: SULFAMETHOXAZOLE-TRIMETHOPRIM 400-80 MG TAB PO SCH (08:12)
[2017-06-03] MEDS ORDERED: LOPE2CAP92 PO (10:20)
--- NOTE | 2017-06-03 10:22 | HHI.DS ---
Discharge Summary Admission Date May 29, 2017 at 22:53 Discharge Date: Jun 03, 2017 Admitting Diagnosis intractable nausea and vomit, leukocytosis, immunosupressants (1) Acute kidney injury superimposed on chronic kidney disease ICD Code: N17.9 - Acute kidney failure, unspecified; N18.9 - Chronic kidney disease, unspecified Status: Acute (2) Intractable nausea and vomiting ICD Code: R11.2 - Nausea with vomiting, unspecified Status: Acute (3) Leukocytosis ICD Code: D72.829 - Elevated white blood cell count, unspecified Status: Acute Procedures none Brief History - From Admission Written by KIMBER Dumas acting as scribe for [Ashlie] on 05/30/17 at 02: 02. 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 He states he was at the director clinical research today removing a skin cancer from his right side of his face and he became nauseous. He states one week ago he had vomiting for 1 day a week ago, and then again today. He states it is brown tinged and he has associated severe diarrhea 10x times today x 1 day and very little urination. He denies any fever, chills, dizziness, black or bloody stools. He was recently started on lisinopril from his meeting manager about a month ago. He is also on Bactrim on Monday, Monday, Saturdays. He states he is awaiting a kidney transplant, and states his kidney disease is from taking cyclosporin. He reports he was taking cyclosporin for antirejection due to his lung transplant which she received 6 years ago. Cardiac cath one month ago, and no intervention needed. Cardiac catheter was done a month ago because of abnormal stress test and also as evaluation for renal transplant candidacy. Further information was obtained from lung transplant nut steamer Benito London at [facility] at [phone] by Ashlie. Patient's baseline creatinine there is 2.8-3. CBC/BMP: 06/02/17 0515 06/03/17 0504 Significant Findings Laboratory Tests Test 05/31/17 11:29 05/31/17 21:58 06/01/17 00:00 06/01/17 00:27 Red Blood Count 3.58 MIL/MM3 (4.50-5.90) 3.61 MIL/MM3 (4.50-5.90) Hemoglobin 10.9 GM/DL (13.0-17.0) 10.7 GM/DL (13.0-17.0) Hematocrit 32.2 % (39.0-51.0) 32.5 % (39.0-51.0) Blood Urea Nitrogen 53 MG/DL (7-18) 48 MG/DL (7-18) Creatinine 4.92 MG/DL (0.60-1.30) 4.71 MG/DL (0.60-1.30) Random Glucose 118 MG/DL (74-106) Calcium Level 8.0 MG/DL (8.5-10.1) 8.0 MG/DL (8.5-10.1) Chloride Level 111 MEQ/L (98-107) 109 MEQ/L (98-107) Estimat Glomerular Filtration Rate 12 ML/MIN (>89) 12 ML/MIN (>89) Neutrophils (%) (Auto) 78.5 % (16.0-70.0) Lymphocytes (%) (Auto) 6.1 % (9.0-44.0) Monocytes (%) (Auto) 12.6 % (0.0-8.0) Lymphocytes # (Auto) 0.5 TH/MM3 (1.0-4.8) Monocytes # (Auto) 1.1 TH/MM3 (0-0.9) Carbon Dioxide Level 19.9 MEQ/L (21.0-32.0) Test 06/01/17 05:25 06/02/17 05:15 06/03/17 05:04 Red Blood Count 3.25 MIL/MM3 (4.50-5.90) 3.30 MIL/MM3 (4.50-5.90) Hemoglobin 9.9 GM/DL (13.0-17.0) 9.8 GM/DL (13.0-17.0) Hematocrit 28.9 % (39.0-51.0) 29.5 % (39.0-51.0) Blood Urea Nitrogen 46 MG/DL (7-18) 36 MG/DL (7-18) 26 MG/DL (7-18) Creatinine 4.58 MG/DL (0.60-1.30) 3.89 MG/DL (0.60-1.30) 3.09 MG/DL (0.60-1.30) Albumin 2.5 GM/DL (3.4-5.0) Calcium Level 7.7 MG/DL (8.5-10.1) 8.1 MG/DL (8.5-10.1) 8.3 MG/DL (8.5-10.1) Chloride Level 109 MEQ/L (98-107) 109 MEQ/L (98-107) Carbon Dioxide Level 19.2 MEQ/L (21.0-32.0) 19.9 MEQ/L (21.0-32.0) Estimat Glomerular Filtration Rate 13 ML/MIN (>89) 15 ML/MIN (>89) 20 ML/MIN (>89) Imaging Last Impressions Upper Extremity Ultrasound 06/01/17 0000 Signed Impressions: Service Date/Time: May 00:48 - CONCLUSION: 1. Positive for superficial thrombus in the cephalic vein. No deep venous thrombosis. Mannie Kuo MD Chest X-Ray 06/01/17 0000 Signed Impressions: Service Date/Time: May 00:23 - CONCLUSION: 1. Elevated right hemidiaphragm with small loculated right effusion. Minimal basilar atelectasis. Mannie Kuo MD Abdomen/Pelvis CT 05/31/17 0000 Signed Impressions: Service Date/Time: Wednesday, May 31, 2017 23:10 - CONCLUSION: 1. Questionable mild thickening of distal small bowel, most characteristic of a mild ileitis or enteritis. No definite colitis. 2. Colonic diverticulosis without diverticulitis. 3. Trace pleural fluid and trace free fluid in the abdomen. 4. Moderate coronary calcifications. 5. No obstruction or free air. Mannie Kuo MD Renal Ultrasound 05/30/17 0929 Signed Impressions: Service Date/Time: Tuesday, May 30, 2017 10:31 - CONCLUSION: 1. Echogenic kidneys bilaterally compatible with medical renal disease. Orlando Bethea MD PE at Discharge GENERAL: laying in bed CARDIOVASCULAR: Regular rate and rhythm without murmurs RESPIRATORY: Breath sounds equal bilaterally. No accessory muscle use. GASTROINTESTINAL: Abdomen soft, non-tender, nondistended. EXT: moves all extremities. Skin: warm and dry EYES: EOMI Pt update on day of discharge Pt feels well. Has no complaints. Diarrhea resolved. No CP/SOB/N/V eager to be discharged Hospital Course 67 y/o male with a 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 SVT on 06/01 -This is the second episode since his lung transplant. At the moment heart rates controlled on metoprolol -Patient stated that he had a recent cardiac catheterization done 2 months ago and that he was told that he had a clean cath. -[place] Coiling Machine Setter, Dr. Barroso evaluated the patient. At this time continue metoprolol 25mg BID and no intervention needed. Acute Kidney injury, superimposed on CKD, creatine on admission 3.2, baseline around 2.8-3, likely dehydration from nausea, vomiting and diarrhea -continue IVF for hydration. Cr improved to 3.09 today -Avoid nephrotoxins as much as possible. Hold lisinopril. Bactrim would need to be continued due to transplant status -Machine Shop Worker following and has signed off. Pt to f/u w his outpatient meeting manager. Pt has appt. Leukocytosis, wbc on admission 15.9, resolved. Chest xray reviewed and shows elevation of the right hemidiaphragm with suspected chronic pleural change along the right lateral chest. Lungs appear clear, calcified lymph nodes in the mediastinum. Diarrhea/emesis -UA negative versus GI infection. Most likely viral. -Stool studies cultures negative. C. difficile was also negative. GI following. Pt wishes to f/u w GI as an outpatient as so far work up has been neg and diarrhea has resolved w loperamide. Immunosuppressive therapy, history of lung transplant 6 years ago -continue medications - verified with [facility] residence life coordinator -Per Xin Banuelos Transplant coordination can give sirolimus1 mg every other day until 0.5 mg tablets obtained. -Patient received an extra dose of sirolimus 2 days ago. Restart sirolimus limits 0.5 mg today. Pt Condition on Discharge: Stable Discharge Disposition: Discharge Home Discharge Time: > 30 minutes Discharge Instructions DIET: Follow Instructions for: Renal Failure Diet Activities you can perform: Regular-No Restrictions Follow up Referrals: Gastroenterology - 2 Weeks Nephrology - 1 Week PCP Follow-up - 1 Week New Medications: Loperamide HCl ( Loperamide HCl) 2 Mg Cap 2 MG PO TID PRN for DIARRHEA, #30 CAP take three times a day as needed. Continued Medications: Acyclovir (Acyclovir) 400 Mg Tab 400 MG PO BID for Mgmt Viral Infection, TAB 0 Refills Calcitriol (Calcitriol) 0.25 Mcg Cap 0.25 MCG PO qod for Calcium Supplement, #30 CAP 0 Refills Cyclosporine (Cyclosporine) 25 Mg Cap 50 MG PO BID, CAP 0 Refills Hydrocodone-Acetaminophen (Jackson) 7.5-325 mg Tab 1 TAB PO Q6H PRN for PAIN, TAB 0 Refills Metoprolol Tartrate (Metoprolol Tartrate) 25 Mg Tab 50 MG PO BID, #60 TAB 0 Refills Niacinamide (Niacinamide) 500 Mg Tab 500 G PO BID for Nutritional Supplement, TAB 0 Refills Ondansetron (Zofran) 4 Mg Tab 4 MG PO Q6HR PRN for NAUSEA OR VOMITING, TAB 0 Refills Pantoprazole (Protonix) 40 Mg Tab 40 MG PO BID for Reflux, #30 TAB 0 Refills Pravastatin (Pravastatin) 20 Mg Tab 20 MG PO BID for Cholesterol Management, #30 TAB 0 Refills Prednisone (Prednisone) 1 Mg Tab 0.5 MG PO DAILY, TAB 0 Refills Sirolimus (Rapamune) 0.5 Mg Tab 0.5 MG PO DAILY for Immunosuppression, #30 TAB 0 Refills Sulfamethoxazole-Trimethoprim (Bactrim) 400-80 Mg Tab 1 TAB PO Monday sat for Infection, TAB 0 Refills Discontinued Medications: Lisinopril (Lisinopril) 2.5 Mg Tab 5 MG PO DAILY, #30 TAB 0 Refills Leah Vincent MD Jun 03, 2017 10:22
== END 2017-06-03 12:18 | disposition home or self-care (01) | DRG 391 ==
LOC: NEPC 17:42 → NEDA 22:13 → OBSVTOIN 22:53 → NEDH 05-30 02:53 → HOCA 05-30 09:57 → HCIS 06-01 01:48
PROVIDERS: ADMIT Hospitalist; ATTEND Hospitalist
DX: K52.9 Noninfective gastroenteritis and colitis, unspecified (principal); N17.0 Acute kidney failure with tubular necrosis; E87.2 Acidosis; Z94.2 Lung transplant status; Z76.82 Awaiting organ transplant status; I47.1 Supraventricular tachycardia; N18.4 Chronic kidney disease, stage 4 (severe); E87.5 Hyperkalemia; E86.0 Dehydration; I12.9 Hypertensive chronic kidney disease with stage 1 through stage 4 chronic kidney disease, or unspecified chronic kidney disease; D72.829 Elevated white blood cell count, unspecified; T38.0X5A Adverse effect of glucocorticoids and synthetic analogues, initial encounter; Z85.828 Personal history of other malignant neoplasm of skin
CPT/HCPCS: 71010; 74176; 76775; 76937; 80048; 80053; 80069; 80158; 81001; 82550; 82570; 83605; 83690; 83735; 84300; 84484; 85007; 85025; 85027; 85610; 85730; 87040; 87207; 87328; 87329; 87493; 87506; 93005; 93971; 96361; 96374; 96375; C9113; J2405; J2765; J7030; J7512; J7515; J7520; Q0169; Q9963